=== PATIENT | female | born 1960 | race Caucasian/White ===

== ENCOUNTER 2016-05-31 07:34 | Emergency (ER) | payer BC ==
[2016-05-31] MEDS ORDERED: SODIUM CHLORIDE 0.9% 1,000 ML IV STA ×2 (08:28)
[2016-05-31] MEDS ORDERED: HYDROmorphone 1 MG/ML 1 ML SYRINGE IVP STA (08:28)
--- NOTE | 2016-05-31 08:33 | ED ---
Abdominal Pain HPI - General Chief Complaint: Abdominal Pain Stated Complaint: ABDOMINAL PAIN Time Seen by Provider: 05/31/16 07:47 Source: patient, RN notes reviewed Mode of arrival: wheelchair Limitations: no limitations - History of Present Illness Initial Comments: This is a 56-year-old female with a prior history of a urinary tract infection who states she had the onset 3 days ago of lower abdominal pain. She's had some urinary urgency no definite burning she has had some nausea no overt fevers chills or sweats she states the pain is 9/10 in severity however she states she was diagnosed with diverticulosis per colonoscopy in the past she does admit to eating peanuts the day before the pain started. She was taking [id number] Pyridium type medication with no relief. No vaginal discharges or diarrhea constipation. She states it does not feel like her previous urinary tract infection. MD Complaint: abdominal pain - Related Data Home Medications Medication Instructions Recorded Confirmed Aspirin 81 mg PO DAILY 08/14/15 05/31/16 Cholecalciferol [Vitamin D3] 5,000 unit PO DAILY 08/14/15 05/31/16 Etanercept [Enbrel] 50 mg SQ Q14D 08/14/15 05/31/16 Leflunomide [Arava] 20 mg PO DAILY 08/14/15 05/31/16 Lisinopril-Hctz 10-12.5 mg 1 tab PO DAILY 08/14/15 05/31/16 [Zestoretic 10-12.5] Gabapentin [Neurontin] 300 mg PO HS 05/31/16 05/31/16 predniSONE 20 mg PO DAILY 05/31/16 05/31/16 Previous Rx's Medication Instructions Recorded Amoxicillin/Potassium Clav 1 tab PO Q12HR #20 tab 05/31/16 [Augmentin 875-125 Tablet] Dicyclomine HCl [Bentyl] 20 mg PO QID #10 tab 05/31/16 Ondansetron Odt [Zofran Odt] 4 mg PO Q8HR PRN #10 tab 05/31/16 traMADol HCL [Ultram] 50 mg PO Q6HR PRN #20 tab 05/31/16 Allergies Allergy/AdvReac Type Severity Reaction Status Date / Time codeine AdvReac Nausea & Verified 05/31/16 07:52 Vomiting Review of Systems ROS Statement: Those systems with pertinent positive or pertinent negative responses have been documented in the HPI. ROS Other: All systems not noted in ROS Statement are negative. Past Medical History Past Medical History: Asthma, Hypertension, Osteoarthritis (OA), Rheumatoid Arthritis (RA) History of Any Multi-Drug Resistant Organisms: None Reported Past Surgical History: Joint Replacement Additional Past Surgical History / Comment(s): left knee replaced, cervical biopsy Past Anesthesia/Blood Transfusion Reactions: No Reported Reaction Past Psychological History: No Psychological Hx Reported Smoking Status: Current every day smoker Past Alcohol Use History: None Reported Additional Past Alcohol Use History / Comment(s): 1ppd since teens Past Drug Use History: None Reported - Past Family History Father Family Medical History: Cancer Mother Family Medical History: Cancer General Exam - General Exam Comments Initial Comments: This is a well-developed well-nourished awake alert oriented x3 female Limitations: no limitations General appearance: alert, in no apparent distress Head exam: Present: atraumatic, normocephalic, normal inspection Eye exam: Present: normal appearance, PERRL, EOMI. Absent: scleral icterus, conjunctival injection, periorbital swelling ENT exam: Present: mucous membranes dry Neck exam: Present: normal inspection. Absent: tenderness, meningismus, lymphadenopathy Respiratory exam: Present: normal lung sounds bilaterally. Absent: respiratory distress, wheezes, rales, rhonchi, stridor Cardiovascular Exam: Present: regular rate, normal rhythm, normal heart sounds. Absent: systolic murmur, diastolic murmur, rubs, gallop, clicks GI/Abdominal exam: Present: soft, tenderness, normal bowel sounds, other ( Suprapubic tenderness to palpation with no guarding no rebound mild right lower and left lower quadrant tenderness.). Absent: distended, guarding, rebound, rigid, bruit, pulsatile mass, hernia Rectal exam: Present: deferred Extremities exam: Present: normal inspection, full ROM, normal capillary refill. Absent: tenderness, pedal edema, joint swelling, calf tenderness Back exam: Present: normal inspection Neurological exam: Present: alert, oriented X3, CN II-XII intact Psychiatric exam: Present: normal affect, normal mood Skin exam: Present: warm, dry, intact, normal color. Absent: rash Course Vital Signs 05/31/16 07:37 Temperature 97.6 F Pulse Rate 91 Respiratory 16 Rate Blood Pressure 139/85 O2 Sat by Pulse 96 Oximetry Medical Decision Making - Medical Decision Making I did a long discussion with patient and her regarding findings. Patient would like to try to go home with outpatient treatment. This is reasonable patient be discharged on appropriate medication she is follow-up with her doctor return when necessary she was cautioned about eating nuts in the future - Lab Data Result diagrams: 05/31/16 08:44 05/31/16 08:44 Lab Results 05/31/16 05/31/16 05/31/16 Range/Units 08:15 08:44 08:44 WBC 16.1 H (3.8-10.6) k/uL RBC 4.65 (3.80-5.40) m/uL Hgb 14.1 (11.4-16.0) gm/dL Hct 43.8 (34.0-46.0) % MCV 94.2 (80.0-100.0) fL MCH 30.3 (25.0-35.0) pg MCHC 32.2 (31.0-37.0) g/dL RDW 12.6 (11.5-15.5) % Plt Count 283 (150-450) k/uL Neutrophils % 88 % Lymphocytes % 6 % Monocytes % 4 % Eosinophils % 1 % Basophils % 0 % Neutrophils # 14.2 H (1.3-7.7) k/uL Lymphocytes # 1.0 (1.0-4.8) k/uL Monocytes # 0.7 (0-1.0) k/uL Eosinophils # 0.1 (0-0.7) k/uL Basophils # 0.1 (0-0.2) k/uL Sodium 138 (137-145) mmol/L Potassium 4.1 (3.5-5.1) mmol/L Chloride 100 (98-107) mmol/L Carbon Dioxide 27 (22-30) mmol/L Anion Gap 11 mmol/L BUN 20 H (7-17) mg/dL Creatinine 1.04 (0.52-1.04) mg/dL Est GFR (MDRD) Af Amer >60 (>60 ml/min/1.73 sqM) Est GFR (MDRD) Non-Af 55 (>60 ml/min/1.73 sqM) Glucose 107 H (74-99) mg/dL Plasma Lactic Acid John (0.7-2.0) mmol/L Calcium 9.6 (8.4-10.2) mg/dL Total Bilirubin 1.3 (0.2-1.3) mg/dL AST 26 (14-36) U/L ALT 45 (9-52) U/L Alkaline Phosphatase 80 (38-126) U/L Total Protein 6.7 (6.3-8.2) g/dL Albumin 3.6 (3.5-5.0) g/dL Amylase <30 L (30-110) U/L Lipase 16 L (23-300) U/L Urine Color Dark [place] Urine Appearance Cloudy H (Clear) Urine pH 6.0 (5.0-8.0) Ur Specific [place] 1.015 (1.001-1.035) Urine Protein 1+ H (Negative) Urine Glucose (UA) Negative (Negative) Urine Ketones Negative (Negative) Urine Blood Moderate H (Negative) Urine Nitrate Negative (Negative) Urine Bilirubin Negative (Negative) Urine Urobilinogen 2.0 (<2.0) mg/dL Ur Leukocyte Esterase Negative (Negative) Urine RBC 65 H (0-5) /hpf Urine WBC 6 H (0-5) /hpf Ur Squamous Epith Cells 8 H (0-4) /hpf Urine Bacteria Rare H (None) /hpf Urine Mucus Rare H (None) /hpf 05/31/16 Range/Units 09:06 WBC (3.8-10.6) k/uL RBC (3.80-5.40) m/uL Hgb (11.4-16.0) gm/dL Hct (34.0-46.0) % MCV (80.0-100.0) fL MCH (25.0-35.0) pg MCHC (31.0-37.0) g/dL RDW (11.5-15.5) % Plt Count (150-450) k/uL Neutrophils % % Lymphocytes % % Monocytes % % Eosinophils % % Basophils % % Neutrophils # (1.3-7.7) k/uL Lymphocytes # (1.0-4.8) k/uL Monocytes # (0-1.0) k/uL Eosinophils # (0-0.7) k/uL Basophils # (0-0.2) k/uL Sodium (137-145) mmol/L Potassium (3.5-5.1) mmol/L Chloride (98-107) mmol/L Carbon Dioxide (22-30) mmol/L Anion Gap mmol/L BUN (7-17) mg/dL Creatinine (0.52-1.04) mg/dL Est GFR (MDRD) Af Amer (>60 ml/min/1.73 sqM) Est GFR (MDRD) Non-Af (>60 ml/min/1.73 sqM) Glucose (74-99) mg/dL Plasma Lactic Acid John 0.9 (0.7-2.0) mmol/L Calcium (8.4-10.2) mg/dL Total Bilirubin (0.2-1.3) mg/dL AST (14-36) U/L ALT (9-52) U/L Alkaline Phosphatase (38-126) U/L Total Protein (6.3-8.2) g/dL Albumin (3.5-5.0) g/dL Amylase (30-110) U/L Lipase (23-300) U/L Urine Color Urine Appearance (Clear) Urine pH (5.0-8.0) Ur Specific [place] (1.001-1.035) Urine Protein (Negative) Urine Glucose (UA) (Negative) Urine Ketones (Negative) Urine Blood (Negative) Urine Nitrate (Negative) Urine Bilirubin (Negative) Urine Urobilinogen (<2.0) mg/dL Ur Leukocyte Esterase (Negative) Urine RBC (0-5) /hpf Urine WBC (0-5) /hpf Ur Squamous Epith Cells (0-4) /hpf Urine Bacteria (None) /hpf Urine Mucus (None) /hpf - Radiology Data Radiology results: report reviewed (I did review the x-ray CAT scan reports. Nonspecific CAT scan does show evidence of sigmoid diverticulosis and some evidence of diverticulitis mild to moderate. Also some cholelithiasis. No other acute changes), image reviewed Disposition Clinical Impression: Diverticulitis large intestine, Abdominal pain Disposition: HOME SELF-CARE Condition: Good Instructions: Abdominal Pain (ED), Diverticulitis (ED) Prescriptions: Amoxicillin/Potassium Clav [Augmentin 875-125 Tablet] 1 tab PO Q12HR #20 tab Dicyclomine HCl [Bentyl] 20 mg PO QID #10 tab Ondansetron Odt [Zofran Odt] 4 mg PO Q8HR PRN #10 tab PRN Reason: Nausea traMADol HCL [Ultram] 50 mg PO Q6HR PRN #20 tab PRN Reason: Pain
[2016-05-31 08:56] LABS: Basophils # (A) 0.1 k/uL (0-0.2); Basophils % (A) 0 %; CH 30.3; CHCM 32.3; Eosinophils # (A) 0.1 k/uL (0-0.7); Eosinophils % (A) 1 %; HCT 43.8 % (34.0-46.0); HDW 2.06; HGB 14.1 gm/dL (11.4-16.0); Luc % (Auto) 1; Lymphocytes % (A) 6 %; MCH 30.3 pg (25.0-35.0); MCHC 32.2 g/dL (31.0-37.0); MCV 94.2 fL (80.0-100.0); Mean Platelet Volume 6.6; Monocytes # (A) 0.7 k/uL (0-1.0); Monocytes % (A) 4 %; Neutrophils # (A) 14.2 k/uL (1.3-7.7); Neutrophils % (A) 88 %; RBC 4.65 m/uL (3.80-5.40); RDW 12.6 % (11.5-15.5); WBC 16.1 k/uL (3.8-10.6); WBC (Perox) 16.14
[2016-05-31 09:04] LABS: Appearance,Urine Cloudy (Clear); Bacteria,Urine Rare /hpf; Bilirubin,Urine Negative (Negative); Glucose,Urine (UA) Negative (Negative); Ketones,Urine Negative (Negative); Leukocyte Esterase,Urine Negative (Negative); Mucus,Urine Rare /hpf; Nitrite,Urine Negative (Negative); Particle Count 7613; Protein,Urine 1+ (Negative); RBC,Urine 65 /hpf (0-5); Specific Gravity,Urine 1.015 (1.001-1.035); Squamous Epithelial Cell,Urine 8 /hpf (0-4); UA Billing (MACRO vs. MICRO) MICRO; WBC,Urine 6 /hpf (0-5)
[2016-05-31 09:07] LABS: ALT 45 U/L (9-52); AST 26 U/L (14-36); Alkaline Phosphatase 80 U/L (38-126); Amylase <30 U/L (30-110); Anion Gap 11 mmol/L; Blood Urea Nitrogen 20 mg/dL (7-17); Calcium 9.6 mg/dL (8.4-10.2); Carbon Dioxide 27 mmol/L (22-30); Chloride 100 mmol/L (98-107); Glucose 107 mg/dL (74-99); Non-African American GFR(MDRD) 55 (>60 ml/min/1.73 sqM); Potassium 4.1 mmol/L (3.5-5.1); Sodium 138 mmol/L (137-145); Total Bilirubin 1.3 mg/dL (0.2-1.3); Total Protein 6.7 g/dL (6.3-8.2)
--- NOTE | 2016-05-31 10:09 | XR ---
EXAMINATION TYPE: XR KUB DATE OF EXAM: 05/31/2016 9:50 AM COMPARISON: NONE HISTORY: Abdominal pain TECHNIQUE: Frontal view of the abdomen on 2 images FINDINGS: There is an underlying scoliosis in the thoracic lumbar spine, there are associated degener ative disc changes. No pneumoperitoneum or bowel obstruction, no pathologic calcification evident. IMPRESSION: No acute abnormality is evident.
--- NOTE | 2016-05-31 11:42 | CT ---
EXAMINATION TYPE: CT abdomen pelvis wo con DATE OF EXAM: 05/31/2016 11:33 AM COMPARISON: NONE HISTORY: 56-year-old female with Abdominal pain. CT DLP: 1709.80 mGycm. Automated exposure control for dose reduction was used. TECHNIQUE: Contiguous axial scanning of the abdomen and pelvis without IV contrast. Coronal and sagit eder reconstructions performed. FINDINGS: Heart is normal size without pericardial effusion. Lung bases clear without pleural effusion. Mild circumferential wall thickening the lower esophagus may relate to the small hiatal hernia, axial image 11. Lung bases are clear without pleural effusion. Noncontrast appearance of the liver, right adrenal gland, spleen, and pancreas within normal limits. There is mild diffuse thickening of the left adrenal gland without discrete nodularity. Kidneys appear within normal limits on noncontrast exam without any nephrolithiasis, contour deformin g lesion, or hydronephrosis. There is cholelithiasis with faceted calculi measuring up to 1 cm. No abnormal gallbladder distention . No dilated small bowel, free fluid, or free air. Short portion of a normal appendix is visualized. No significant stool burden. There is sigmoid diverticulosis with mild pericolonic fat stranding along the mid to distal sigmoid, axial image 73, with corresponding wall thickening. Small amount of pelvic free fluid is also present. No free air. Tiny fatty umbilical hernia. No mesenteric or retroperitoneal lymphadenopathy. Bladder is urine distended. Uterus and ovaries are visualized. Bones: Degenerative changes in the lumbar spine. Superior endplate Schmorl's node of L2 vertebral bod y versus old superior endplate compression injury. IMPRESSION: 1. SIGMOID DIVERTICULOSIS WITH FINDINGS SUGGESTING MILD TO MODERATE ACUTE SIGMOID DIVERTICULITIS. THE RE IS A SMALL AMOUNT OF PELVIC FREE FLUID. NO ABSCESS OR FREE AIR. FOLLOW-UP DIRECT VISUALIZATION AFT ER SUCCESSFUL TREATMENT. 2. SOME MILD WALL THICKENING AT THE DISTAL ESOPHAGUS SUSPECTED TO RELATE TO A SMALL HIATAL HERNIA RAT HER THAN A MUCOSAL LESION. CLINICALLY CORRELATE TO THE NEED FOR DIRECT VISUALIZATION. 3. CHOLELITHIASIS.
[2016-05-31] MEDS ORDERED: AMOXIC-POT CLAV 875-125MG 1 EACH TAB PO STA (11:57)
[2016-05-31 12:15] VITALS: BP 143/93; PULSE 84; RESP 18; TEMP 98.1
== END 2016-05-31 12:16 | disposition home or self-care (01) ==
LOC: EC 07:34
DX: K57.30 Diverticulosis of large intestine without perforation or abscess without bleeding (principal); K80.20 Calculus of gallbladder without cholecystitis without obstruction; I10 Essential (primary) hypertension; M06.9 Rheumatoid arthritis, unspecified; J45.909 Unspecified asthma, uncomplicated; M19.90 Unspecified osteoarthritis, unspecified site; F17.200 Nicotine dependence, unspecified, uncomplicated; Z88.5 Allergy status to narcotic agent; Z79.82 Long term (current) use of aspirin; Z79.52 Long term (current) use of systemic steroids; Z79.899 Other long term (current) drug therapy
CPT/HCPCS: 99284 ×2; 96374 ×2; 96361 ×2; 36415; 80053; 82150; 83605; 83690; 85025; 81001; 74000; 74176; J1170

== ENCOUNTER 2016-12-05 11:25 | Inpatient (IN) | payer BC ==
[2016-12-05] MEDS ORDERED: PANTOPRAZOLE 40 MG/10 ML VIAL IVP STA (12:33)
[2016-12-05] MEDS ORDERED: ONDANSETRON 4 MG/2 ML VIAL IVP STA (12:33)
[2016-12-05] MEDS ORDERED: SODIUM CHLORIDE 0.9% 1,000 ML IV STA (12:33)
--- NOTE | 2016-12-05 12:36 | ED ---
General Adult HPI <Bandar Torres - Last Filed: 12/05/16 15:08> - General Source: patient, family, RN notes reviewed Mode of arrival: wheelchair Limitations: no limitations <Naresh Godinez - Last Filed: 12/05/16 15:21> - General Chief complaint: Abdominal Pain Stated complaint: NAUSEA X 3 DAYS, ABDOMINAL PAIN Time Seen by Provider: 12/05/16 12:27 - History of Present Illness Initial comments: Patient 56-year-old female with significant past medical history for hypertension, diverticulitis, who presents emergency room today with chief complaint of symptoms of nausea vomiting 2 days. Patient states that she began having symptoms not feeling well appreciated piece of pizza 2 days ago. She states she's had nausea vomiting over the past 2 days no signs of blood. Does admit to some cramping pain in the lower abdomen that radiates up that comes and goes. Patient denies any other complaints or symptoms. States she is feeling the house that had this pizza. Patient denies any recent fever, chills, shortness of breath, chest pain, back pain, abdominal pain, nausea or vomiting, numbness or tingling, dysuria or hematuria, constipation or diarrhea, headaches or visual changes, or any other complaints. (Naresh Godinez) - Related Data Home Medications Medication Instructions Recorded Confirmed Aspirin 81 mg PO DAILY 08/14/15 12/05/16 Leflunomide [Arava] 20 mg PO DAILY 08/14/15 12/05/16 Lisinopril-Hctz 10-12.5 mg 1 tab PO DAILY 08/14/15 12/05/16 [Zestoretic 10-12.5] Cyanocobalamin (Vitamin B-12) 1,000 mcg PO DAILY 12/05/16 12/05/16 [Vitamin B-12] Multivitamins, Thera [Multivitamin 1 tab PO DAILY 12/05/16 12/05/16 (formulary)] Orencia(Unknown) 1 dose SQ TU 12/05/16 12/05/16 Allergies Allergy/AdvReac Type Severity Reaction Status Date / Time codeine AdvReac Nausea & Verified 12/05/16 14:21 Vomiting Review of Systems ROS Other: All systems not noted in ROS Statement are negative. <Bandar Torres - Last Filed: 12/05/16 15:08> ROS Other: All systems not noted in ROS Statement are negative. <Naresh Godinez - Last Filed: 12/05/16 15:21> ROS Statement: Those systems with pertinent positive or pertinent negative responses have been documented in the HPI. Past Medical History Past Medical History: Asthma, Hypertension, Osteoarthritis (OA), Rheumatoid Arthritis (RA) History of Any Multi-Drug Resistant Organisms: None Reported Past Surgical History: Joint Replacement Additional Past Surgical History / Comment(s): left knee replaced, cervical biopsy, multiple ortho surgery from [facility] Past Anesthesia/Blood Transfusion Reactions: No Reported Reaction Past Psychological History: No Psychological Hx Reported Smoking Status: Current every day smoker Past Alcohol Use History: None Reported Past Drug Use History: None Reported - Past Family History Father Family Medical History: Cancer Mother Family Medical History: Cancer <Naresh Godinez - Last Filed: 12/05/16 15:21> General Exam <Bandar Torres - Last Filed: 12/05/16 15:08> Limitations: no limitations <Naresh Godinez - Last Filed: 12/05/16 15:21> - General Exam Comments Initial Comments: General: The patient is awake and alert, in no distress, and does not appear acutely ill. Eye: Pupils are equal, round and reactive to light, extra-ocular movements are intact. No nystagmus. There is normal conjunctiva bilaterally. No signs of icterus. Ears, nose, mouth and throat: There are moist mucous membranes and no oral lesions. Neck: The neck is supple, there is no tenderness or JVD. Cardiovascular: There is a regular rate and rhythm. No murmur, rub or gallop is appreciated. Respiratory: Lungs are clear to auscultation, respirations are non-labored, breath sounds are equal. No wheezes, stridor, rales, or rhonchi. Gastrointestinal: Normal. 7. Normal bowel sounds. Soft on palpation. Patient does have some discomfort in the right and left lower quadrants. No rebound tenderness. No Guarding. No CVA tenderness. Musculoskeletal: Normal ROM, no tenderness. Strength 5/5. Sensation intact. Pulses equal bilaterally 2+. Neurological: A&O x 3. CN II-XII intact, There are no obvious motor or sensory deficits. Coordination appears grossly intact. Speech is normal. Skin: Skin is warm and dry and no rashes or lesions are noted. Psychiatric: Cooperative, appropriate mood & affect, normal judgment. (Naresh Godinez) Course <Bandar Torres - Last Filed: 12/05/16 15:08> <Naresh Godinez - Last Filed: 12/05/16 15:21> Vital Signs 12/05/16 12/05/16 12/05/16 11:40 12:43 13:00 Temperature 98.9 F 98.4 F Pulse Rate 90 86 88 Respiratory 16 20 18 Rate Blood Pressure 127/87 160/82 160/82 O2 Sat by Pulse 96 97 98 Oximetry - Reevaluation(s) Reevaluation #1: 12/05/16 15:08 I did personally do a [id number] evaluation the patient did discuss the findings with the patient. I also discussed case with Dr. Anderson who is covering Dr. England patient has seen in the past. Patient will be admitted for IV fluids and IV antibiotics and by mouth auscultation by the patient's covering medical physician. (Bandar Torres) Medical Decision Making - Lab Data Result diagrams: 12/05/16 12:03 12/05/16 12:03 <Bandar Torres - Last Filed: 12/05/16 15:08> - Lab Data Result diagrams: 12/05/16 12:03 12/05/16 12:03 <Naresh Godinez - Last Filed: 12/05/16 15:21> - Lab Data Lab Results 12/05/16 12/05/16 12/05/16 Range/Units 12:03 12:03 13:30 WBC 17.7 H (3.8-10.6) k/uL RBC 4.51 (3.80-5.40) m/uL Hgb 14.7 (11.4-16.0) gm/dL Hct 42.0 (34.0-46.0) % MCV 93.0 (80.0-100.0) fL MCH 32.6 (25.0-35.0) pg MCHC 35.1 (31.0-37.0) g/dL RDW 13.4 (11.5-15.5) % Plt Count 362 (150-450) k/uL Neutrophils % 86 % Lymphocytes % 7 % Monocytes % 6 % Eosinophils % 0 % Basophils % 1 % Neutrophils # 15.1 H (1.3-7.7) k/uL Lymphocytes # 1.3 (1.0-4.8) k/uL Monocytes # 1.0 (0-1.0) k/uL Eosinophils # 0.1 (0-0.7) k/uL Basophils # 0.1 (0-0.2) k/uL Sodium 139 (137-145) mmol/L Potassium 4.6 (3.5-5.1) mmol/L Chloride 102 (98-107) mmol/L Carbon Dioxide 27 (22-30) mmol/L Anion Gap 10 mmol/L BUN 16 (7-17) mg/dL Creatinine 0.73 (0.52-1.04) mg/dL Est GFR (MDRD) Af Amer >60 (>60 ml/min/1.73 sqM) Est GFR (MDRD) Non-Af >60 (>60 ml/min/1.73 sqM) Glucose 109 H (74-99) mg/dL Calcium 9.9 (8.4-10.2) mg/dL Total Bilirubin 1.0 (0.2-1.3) mg/dL AST 28 (14-36) U/L ALT 36 (9-52) U/L Alkaline Phosphatase 100 (38-126) U/L Total Protein 7.4 (6.3-8.2) g/dL Albumin 4.0 (3.5-5.0) g/dL Amylase <30 L (30-110) U/L Lipase 29 (23-300) U/L Urine Color Yellow Urine Appearance Clear (Clear) Urine pH 6.5 (5.0-8.0) Ur Specific [place] 1.050 H (1.001-1.035) Urine Protein 1+ H (Negative) Urine Glucose (UA) Negative (Negative) Urine Ketones 1+ H (Negative) Urine Blood Negative (Negative) Urine Nitrite Negative (Negative) Urine Bilirubin Negative (Negative) Urine Urobilinogen <2.0 (<2.0) mg/dL Ur Leukocyte Esterase Negative (Negative) Urine RBC 2 (0-5) /hpf Urine WBC 1 (0-5) /hpf Ur Squamous Epith Cells 5 H (0-4) /hpf Urine Bacteria Rare H (None) /hpf Urine Mucus Rare H (None) /hpf Disposition <Bandar Torres - Last Filed: 12/05/16 15:08> Time of Disposition: 15:09 <Naresh Godinez - Last Filed: 12/05/16 15:21> Clinical Impression: Intussusception Disposition: ADMITTED IP TO THIS [facility] Condition: Stable Referrals: Blade Ennis MD [Primary Care Provider] - 1-2 days
[2016-12-05 12:46] LABS: Basophils # (A) 0.1 k/uL (0-0.2); Basophils % (A) 1 %; CH 31.1; CHCM 33.6; Eosinophils # (A) 0.1 k/uL (0-0.7); Eosinophils % (A) 0 %; HDW 2.28; HGB 14.7 gm/dL (11.4-16.0); Luc # (Auto) 0.11; Luc % (Auto) 1; Lymphocytes # (A) 1.3 k/uL (1.0-4.8); Lymphocytes % (A) 7 %; MCH 32.6 pg (25.0-35.0); MCHC 35.1 g/dL (31.0-37.0); Mean Platelet Volume 7.2; Monocytes % (A) 6 %; Neutrophils # (A) 15.1 k/uL (1.3-7.7); Neutrophils % (A) 86 %; RBC 4.51 m/uL (3.80-5.40); RDW 13.4 % (11.5-15.5); WBC 17.7 k/uL (3.8-10.6)
[2016-12-05 12:54] LABS: ALT 36 U/L (9-52); AST 28 U/L (14-36); Alkaline Phosphatase 100 U/L (38-126); Amylase <30 U/L (30-110); Anion Gap 10 mmol/L; Blood Urea Nitrogen 16 mg/dL (7-17); Calcium 9.9 mg/dL (8.4-10.2); Carbon Dioxide 27 mmol/L (22-30); Chloride 102 mmol/L (98-107); Glucose 109 mg/dL (74-99); Non-African American GFR(MDRD) >60 (>60 ml/min/1.73 sqM); Potassium 4.6 mmol/L (3.5-5.1); Sodium 139 mmol/L (137-145); Total Protein 7.4 g/dL (6.3-8.2)
[2016-12-05] MEDS ORDERED: RX INFO: IV CONTRAST WAS GIVEN 1 EACH MISC MISCELLANE PRN (13:14)
--- NOTE | 2016-12-05 14:09 | CT ---
EXAMINATION TYPE: CT abdomen pelvis w con DATE OF EXAM: 12/05/2016 COMPARISON: 05/31/2016 HISTORY: Nausea x 3 days and abdominal pain CT DLP: 2163.50 mGycm Automated exposure control for dose reduction was used. TECHNIQUE: Helical acquisition of images was performed from the lung bases through the pelvis. CONTRAST: Performed without Oral Contrast and with IV Contrast, patient injected with 100 ml mL of Omnipaque 30 0. FINDINGS: Lung bases are clear. There is no pleural effusion. Liver spleen pancreas appear normal. There are ca lcified gallstones. Bile ducts are not dilated. There is no adrenal mass. Kidneys show satisfactory contrast opacification. There is no hydronephrosi s. There are some mildly dilated loops of small bowel in the mid mid and lower abdomen. These measure up to 3.5 cm. There is no ascites. Bladder distends smoothly. There is an unusual rounded fluid yamilet ection with wall thickening and air in the mid pelvis that apparently relates to distal ileum. The te rminal ileum is not dilated. IMPRESSION: SMALL CALCIFIED GALLSTONES. NO DILATED DUCTS. DISTENDED FLUID FILLED DISTAL SMALL BOWEL WITH UNUSUAL APPEARANCE OF A LOOP OF SMALL BOWEL IN THE MID PELVIS. I WOULD CONSIDER POSSIBILITIES OF SMALL BOWEL INTUSSUSCEPTION WITH PARTIAL MECHANICAL OBSTRU CTION. ALSO CONSIDER LOCALIZED INFLAMMATORY BOWEL DISEASE. THERE IS CLEARING OF THE INFLAMMATORY [place]LER GES IN THE SIGMOID COLON COMPARED TO OLD EXAM. OLD 15% COMPRESSION FRACTURE OF L2 VERTEBRAL BODY NOTED.
[2016-12-05 14:15] LABS: Appearance,Urine Clear (Clear); Bacteria,Urine Rare /hpf; Bilirubin,Urine Negative (Negative); Glucose,Urine (UA) Negative (Negative); Ketones,Urine 1+ (Negative); Leukocyte Esterase,Urine Negative (Negative); Mucus,Urine Rare /hpf; Nitrite,Urine Negative (Negative); PH, Urine 6.5 (5.0-8.0); Particle Count 4340; Protein,Urine 1+ (Negative); RBC,Urine 2 /hpf (0-5); Squamous Epithelial Cell,Urine 5 /hpf (0-4); UA Billing (MACRO vs. MICRO) MICRO; Urobilinogen,Urine <2.0 mg/dL (<2.0); WBC,Urine 1 /hpf (0-5)
[2016-12-05] MEDS ORDERED: NALOXONE 0.4 MG/ML 1 ML VIAL IV PRN (15:17)
[2016-12-05] MEDS ORDERED: LORazepam 2 MG/ML SYRINGE IV PRN (15:17)
[2016-12-05] MEDS ORDERED: PIPERACILLIN-TAZOBACTAM 3.375 GM in DEXTROSE/WATER 1 50ML.BAG IVPB STA (15:20)
[2016-12-05] MEDS: HYDROmorphone 1 MG/ML 1 ML SYRINGE IV PRN ×2 (16:00→19:40)
[2016-12-05 17:31] VITALS: BMI 43.0
[2016-12-05] MEDS: SODIUM CHLORIDE 0.9% 1,000 ML IV SCH (19:16)
[2016-12-05] MEDS: ONDANSETRON 4 MG/2 ML VIAL IVP PRN (19:31)
[2016-12-05] MEDS ORDERED: HYDROmorphone 1 MG/ML 1 ML SYRINGE ONE (23:30)
[2016-12-06] MEDS: ONDANSETRON 4 MG/2 ML VIAL IVP PRN ×2 (04:37→12:03)
[2016-12-06] MEDS: HYDROmorphone 1 MG/ML 1 ML SYRINGE IV PRN ×4 (04:39→15:06)
[2016-12-06] MEDS: PIPERACILLIN-TAZOBACTAM 3.375 GM in DEXTROSE/WATER 1 50ML.BAG IVPB SCH ×2 (05:19→07:46)
[2016-12-06] MEDS: SODIUM CHLORIDE 0.9% 1,000 ML IV SCH ×3 (05:49→23:30)
[2016-12-06 07:29] LABS: Basophils # (A) 0.1 k/uL (0-0.2); Basophils % (A) 1 %; CH 30.1; CHCM 32.2; Eosinophils # (A) 0.2 k/uL (0-0.7); Eosinophils % (A) 2 %; HCT 39.9 % (34.0-46.0); HDW 2.36; HGB 13.4 gm/dL (11.4-16.0); Luc # (Auto) 0.21; Luc % (Auto) 2; Lymphocytes # (A) 1.6 k/uL (1.0-4.8); Lymphocytes % (A) 12 %; MCH 31.7 pg (25.0-35.0); MCHC 33.7 g/dL (31.0-37.0); Monocytes # (A) 0.9 k/uL (0-1.0); Monocytes % (A) 7 %; Neutrophils # (A) 9.9 k/uL (1.3-7.7); Neutrophils % (A) 77 %; RBC 4.24 m/uL (3.80-5.40); WBC 12.8 k/uL (3.8-10.6); WBC (Perox) 12.79
[2016-12-06 08:04] LABS: Chloride 107 mmol/L (98-107); Glucose 98 mg/dL (74-99); Potassium 4.2 mmol/L (3.5-5.1); Sodium 140 mmol/L (137-145); Total Protein 6.5 g/dL (6.3-8.2)
[2016-12-06 08:05] LABS: ALT 33 U/L (9-52); AST 25 U/L (14-36); Alkaline Phosphatase 80 U/L (38-126); Anion Gap 10 mmol/L; Blood Urea Nitrogen 17 mg/dL (7-17); Calcium 9.3 mg/dL (8.4-10.2); Carbon Dioxide 23 mmol/L (22-30); Non-African American GFR(MDRD) >60 (>60 ml/min/1.73 sqM); Total Bilirubin 0.8 mg/dL (0.2-1.3)
--- NOTE | 2016-12-06 08:55 | P.GSHP ---
History of Present Illness H&P Date: 12/06/16 Chief Complaint: Nausea and vomiting The patient began feeling badly Tuesday. She had eaten a slice of pizza. Shortly thereafter she began developing some nausea and vomiting. She's had crampy abdominal pain. Unable to keep anything down over the weekend so came into the emergency department. No fevers or chills. She had a bowel movement on Tuesday. No flatus since then. She was treated for diverticulitis in May of this year, those symptoms quickly resolved. She had a colonoscopy by myself about 3 years ago which showed diverticular disease. She does have a family history of small bowel cancer in her father. - Review of Systems All systems: negative Past Medical History Past Medical History: Asthma, Hypertension, Osteoarthritis (OA), Rheumatoid Arthritis (RA) History of Any Multi-Drug Resistant Organisms: None Reported Past Surgical History: Joint Replacement Additional Past Surgical History / Comment(s): left knee replaced, cervical biopsy, multiple ortho surgery from [facility] Past Anesthesia/Blood Transfusion Reactions: No Reported Reaction Past Psychological History: No Psychological Hx Reported Smoking Status: Current every day smoker Past Alcohol Use History: None Reported Past Drug Use History: None Reported - Past Family History Father Family Medical History: Cancer (Small bowel adenocarcinoma in her father) Mother Family Medical History: Cancer Medications and Allergies Home Medications Medication Instructions Recorded Confirmed Type Aspirin 81 mg PO DAILY 08/14/15 12/05/16 History Leflunomide [Arava] 20 mg PO DAILY 08/14/15 12/05/16 History Lisinopril-Hctz 10-12.5 mg 1 tab PO DAILY 08/14/15 12/05/16 History [Zestoretic 10-12.5] Cyanocobalamin (Vitamin B-12) 1,000 mcg PO DAILY 12/05/16 12/05/16 History [Vitamin B-12] Multivitamins, Thera [Multivitamin 1 tab PO DAILY 12/05/16 12/05/16 History (formulary)] Orencia(Unknown) 1 dose SQ TU 12/05/16 12/05/16 History Allergies Allergy/AdvReac Type Severity Reaction Status Date / Time codeine AdvReac Nausea & Verified 12/05/16 14:21 Vomiting Surgical - Exam Osteopathic Statement: *. No significant issues noted on an osteopathic structural exam other than those noted in the History and Physical/Consult. Vital Signs Temp Pulse Resp BP Pulse Ox 98.9 F 90 16 127/87 96 12/05/16 11:40 12/05/16 11:40 12/05/16 11:40 12/05/16 11:40 12/05/16 11:40 - General well developed, well nourished, no distress - Eyes normal ocular movement - ENT normal pinna, normal mucosa - Neck trachea midline, no lymphadectomy - Respiratory normal expansion, clear to auscultation - Cardiovascular Rhythm: regular - Abdomen Abdomen: soft, tender, bowel sounds, no surgical scars, no guarding (Minimal nonspecific tenderness), no rigid, no rebound - Psychiatric oriented to time, oriented to person, oriented to place, speech is normal, memory intact Results - Labs 12/06/16 06:55 12/06/16 06:55 Abnormal Lab Results - Last 24 Hours (Table) 12/05/16 12/05/16 12/05/16 Range/Units 12:03 12:03 13:30 WBC 17.7 H (3.8-10.6) k/uL Neutrophils # 15.1 H (1.3-7.7) k/uL Glucose 109 H (74-99) mg/dL Albumin (3.5-5.0) g/dL Amylase <30 L (30-110) U/L Ur Specific [place] 1.050 H (1.001-1.035) Urine Protein 1+ H (Negative) Urine Ketones 1+ H (Negative) Ur Squamous Epith Cells 5 H (0-4) /hpf Urine Bacteria Rare H (None) /hpf Urine Mucus Rare H (None) /hpf 12/06/16 12/06/16 Range/Units 06:55 06:55 WBC 12.8 H (3.8-10.6) k/uL Neutrophils # 9.9 H (1.3-7.7) k/uL Glucose (74-99) mg/dL Albumin 3.4 L (3.5-5.0) g/dL Amylase (30-110) U/L Ur Specific [place] (1.001-1.035) Urine Protein (Negative) Urine Ketones (Negative) Ur Squamous Epith Cells (0-4) /hpf Urine Bacteria (None) /hpf Urine Mucus (None) /hpf Diabetes panel 12/05/16 12/06/16 Range/Units 12:03 06:55 Sodium 139 140 (137-145) mmol/L Potassium 4.6 4.2 (3.5-5.1) mmol/L Chloride 102 107 (98-107) mmol/L Carbon Dioxide 27 23 (22-30) mmol/L BUN 16 17 (7-17) mg/dL Creatinine 0.73 0.69 (0.52-1.04) mg/dL Glucose 109 H 98 (74-99) mg/dL Calcium 9.9 9.3 (8.4-10.2) mg/dL AST 28 25 (14-36) U/L ALT 36 33 (9-52) U/L Alkaline Phosphatase 100 80 (38-126) U/L Total Protein 7.4 6.5 (6.3-8.2) g/dL Albumin 4.0 3.4 L (3.5-5.0) g/dL Calcium panel 12/05/16 12/06/16 Range/Units 12:03 06:55 Calcium 9.9 9.3 (8.4-10.2) mg/dL Albumin 4.0 3.4 L (3.5-5.0) g/dL Pituitary panel 12/05/16 12/06/16 Range/Units 12:03 06:55 Sodium 139 140 (137-145) mmol/L Potassium 4.6 4.2 (3.5-5.1) mmol/L Chloride 102 107 (98-107) mmol/L Carbon Dioxide 27 23 (22-30) mmol/L BUN 16 17 (7-17) mg/dL Creatinine 0.73 0.69 (0.52-1.04) mg/dL Glucose 109 H 98 (74-99) mg/dL Calcium 9.9 9.3 (8.4-10.2) mg/dL Adrenal panel 12/05/16 12/06/16 Range/Units 12:03 06:55 Sodium 139 140 (137-145) mmol/L Potassium 4.6 4.2 (3.5-5.1) mmol/L Chloride 102 107 (98-107) mmol/L Carbon Dioxide 27 23 (22-30) mmol/L BUN 16 17 (7-17) mg/dL Creatinine 0.73 0.69 (0.52-1.04) mg/dL Glucose 109 H 98 (74-99) mg/dL Calcium 9.9 9.3 (8.4-10.2) mg/dL Total Bilirubin 1.0 0.8 (0.2-1.3) mg/dL AST 28 25 (14-36) U/L ALT 36 33 (9-52) U/L Alkaline Phosphatase 100 80 (38-126) U/L Total Protein 7.4 6.5 (6.3-8.2) g/dL Albumin 4.0 3.4 L (3.5-5.0) g/dL - Imaging CT scan - abdomen: report reviewed, image reviewed (I reviewed the computed tomography scan with the radiologist. We also compared this to the one in May. There isn't appear to be an intussusception however there may be a small bowel fecalith.) Assessment and Plan (1) Small bowel obstruction Status: Acute Plan: We'll order a small bowel follow-through series to further evaluate this area. If it does show evidence of foreign body or obstruction and she will need to the OR. We'll do DVT and ulcer prophylaxis. Further recommendations to follow.
--- NOTE | 2016-12-06 10:34 | XR ---
EXAMINATION TYPE: XR abdomen 1V DATE OF EXAM: 12/06/2016 9:43 AM CLINICAL HISTORY: Abnormal CT, possible distal intraluminal small bowel mass. TECHNIQUE: 2 supine KUB images of the abdomen are obtained. COMPARISON: CT abdomen and pelvis from yesterday. Older CT May 31, 2016. FINDINGS: Preprocedure rn interventional images show overall nonobstructive bowel gas pattern. Large calcified ga llstones are redemonstrated. Upon trying to drink contrast patient vomited. Contrast could not be given and thus small bowel serie s had to be canceled. IMPRESSION: As above
[2016-12-06] MEDS: FAMOTIDINE 20 MG/2 ML VIAL IV SCH ×2 (11:02→22:54)
--- NOTE | 2016-12-06 14:13 | P.PN ---
Progress Note - Text The patient was unable to do the upper GI/small bowel follow-through due to vomiting. She still doesn't feel well. Therefore I recommended a laparotomy due to the obstruction. This may be something as simple as correcting a small bowel bezoar or could require a segmental bowel resection. The procedure risk and complications were discussed. Questions were encouraged and answered. I do that for her today.
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
[2016-12-06] MEDS ORDERED: ERTAPENEM 1 GM in SODIUM CHLORIDE 0.9% 50 ML IVPB ONE (16:00)
[2016-12-06] MEDS ORDERED: IV FLUID CONTINUATION 1,000 ML IV ONE (17:07)
[2016-12-06] MEDS ORDERED: LACTATED RINGERS 1,000 ML IV ONE ×2 (17:23→19:12)
[2016-12-06] MEDS ORDERED: LIDOCAINE 1% 20 ML VIAL (10MG/ML) FOR IV START INTRADERMA ONE (17:23)
[2016-12-06] MEDS ORDERED: ONDANSETRON 4 MG/2 ML VIAL IVP ONE (17:30)
[2016-12-06] MEDS ORDERED: DEXAMETHASONE SOD PHOSPHATE 10 MG/ML 1 ML VIAL IV ONE (17:31)
[2016-12-06] MEDS ORDERED: HEPARIN SODIUM,PORCINE 5,000 UNIT/ML 1 ML VIAL SQ ONE (17:40)
[2016-12-06] MEDS ORDERED: fentaNYL (PF) 50 MCG/ML 2 ML AMP ONE (17:59)
[2016-12-06] MEDS ORDERED: PROPOFOL 10 MG/ML 20 ML VIAL IV ONE (17:59)
[2016-12-06] MEDS ORDERED: MIDAZOLAM 2 MG/2 ML VIAL ONE (17:59)
[2016-12-06] MEDS ORDERED: ROCURONIUM BROMIDE 10 MG/ML 10 ML VIAL IV ONE (17:59)
[2016-12-06] MEDS ORDERED: LIDOCAINE 1% INJ 10MG/ML (20 ML MDV) ONE (17:59)
[2016-12-06] MEDS ORDERED: SUCCINYLCHOLINE CHLORIDE VIAL 200 MG/10 ML VIAL IV ONE (17:59)
[2016-12-06] MEDS: HEPARIN SODIUM,PORCINE 5,000 UNIT/ML 1 ML VIAL SQ SCH ×2 (19:26→23:31)
--- NOTE | 2016-12-06 19:55 | P.OP ---
Date of Procedure: 12/06/16 Preoperative Diagnosis: Small bowel obstruction Postoperative Diagnosis: Small bowel obstruction due to small bowel perforation with abscess Procedure(s) Performed: Exploratory laparotomy, drainage of abscess, segmental small bowel resection, placement of drain Implants: Anesthesia: DAIJA Surgeon: Ruth England Estimated Blood Loss (ml): 100 Pathology: other (Small bowel with mesentery, culture) Condition: stable Disposition: PACU Indications for Procedure: The patient presented with nausea vomiting and abdominal pain. CT was reviewed radiologist and there is concern for a small bowel obstruction possibly due to a fecalith. Operative Findings: Small bowel perforation in the proximal jejunum with an abscess containing 15- 20 mL's of purulent material. There was some lymphadenopathy in the mesentery which could be reactive to the abscess. A segmental small bowel resection was carried out encompassing some of the mesentery. The small bowel was run from the terminal ileum proximally and from the ligament of Treitz distally and there was no evidence of any small bowel diverticuli or palpable intraluminal mass. There was some mild edema to the sigmoid colon, the abscess had been eating in that area. The sigmoid colon itself appeared intact and not the source of the infection Description of Procedure: The patient was taken the operative suite where she is prepped and draped in the usual sterile manner under general endotracheal anesthetic. The abdomen is entered through a midline incision. Small bleeding points were controlled with electrocautery. The small bowel was palpated and the area of mass was identified. Book-Ronaldo retractor was placed. The inflamed small bowel was gently dissected free from the sigmoid colon. The small bowel abscess was identified and drained. The small bowel was brought up. The small bowel was run proximally and distally. Sites were chosen proximal and distal to the perforation for resection. Opening was made in the mesentery. A NOE stapler was placed and fired. The mesentery was then either taken down with LigaSure or the larger vessels were clamped cut and tied with 0 Vicryl sutures. The specimen was passed off. The antimesenteric borders of the small bowel were tacked together with 3-0 Vicryl sutures. A small opening was then made in each limb of the bowel and a NOE stapler was placed and fired. The enteric defect was closed with a TA 60 stapler. The staple lines were reinforced with 3-0 Vicryl Lembert sutures. Gloves were changed. The mesenteric defect was then closed with 3-0 Vicryl suture. The abdomen was irrigated and aspirated. A small stab incision was made in the drain was placed into the pelvis. Small bowel was allowed to lay in gentle loops. It was covered with the mesentery. The fashion peritoneum were closed with 1 PDS. The skin was loosely closed with everette. Some ivy of Telfa were placed to allow for drainage of serous fluid. Sterile dressing was applied. She tolerated the procedure without difficulty and was taken recovery room in satisfactory condition. According to or personnel all counts were correct.
[2016-12-06] MEDS: HYDROmorphone 1 MG/ML 1 ML SYRINGE IVP ONE ×4 (20:04→20:23)
[2016-12-06] MEDS: KETOROLAC 30 MG/ML 1 ML VIAL IVP SCH (20:04)
[2016-12-06] MEDS: HYDROmorphone PCA 5 MG/25 ML SYRINGE IV PRN (21:12)
[2016-12-07] MEDS: HYDROmorphone PCA 5 MG/25 ML SYRINGE IV PRN (00:52)
[2016-12-07] MEDS: KETOROLAC 30 MG/ML 1 ML VIAL IVP SCH ×3 (02:27→15:40)
[2016-12-07] MEDS: SODIUM CHLORIDE 0.9% 1,000 ML IV SCH ×6 (06:13→23:04)
[2016-12-07 07:09] LABS: Basophils # (A) 0.1 k/uL (0-0.2); Basophils % (A) 0 %; CH 30.7; CHCM 32.6; Eosinophils % (A) 0 %; HCT 39.8 % (34.0-46.0); HDW 2.37; HGB 13.1 gm/dL (11.4-16.0); Luc # (Auto) 0.15; Luc % (Auto) 1; Lymphocytes # (A) 0.9 k/uL (1.0-4.8); Lymphocytes % (A) 6 %; MCH 31.2 pg (25.0-35.0); MCHC 32.9 g/dL (31.0-37.0); MCV 94.7 fL (80.0-100.0); Mean Platelet Volume 6.8; Monocytes # (A) 0.8 k/uL (0-1.0); Monocytes % (A) 6 %; Neutrophils # (A) 12.2 k/uL (1.3-7.7); Neutrophils % (A) 87 %; RDW 13.1 % (11.5-15.5); WBC 14.1 k/uL (3.8-10.6)
[2016-12-07 07:38] LABS: ALT 38 U/L (9-52); AST 28 U/L (14-36); Alkaline Phosphatase 75 U/L (38-126); Anion Gap 11 mmol/L; Blood Urea Nitrogen 20 mg/dL (7-17); Calcium 9.4 mg/dL (8.4-10.2); Carbon Dioxide 22 mmol/L (22-30); Chloride 107 mmol/L (98-107); Glucose 108 mg/dL (74-99); Non-African American GFR(MDRD) >60 (>60 ml/min/1.73 sqM); Potassium 4.5 mmol/L (3.5-5.1); Sodium 140 mmol/L (137-145); Total Bilirubin 0.8 mg/dL (0.2-1.3); Total Protein 6.3 g/dL (6.3-8.2)
[2016-12-07] MEDS: FAMOTIDINE 20 MG/2 ML VIAL IV SCH ×2 (08:31→20:22)
[2016-12-07] MEDS: HEPARIN SODIUM,PORCINE 5,000 UNIT/ML 1 ML VIAL SQ SCH ×3 (08:31→23:29)
[2016-12-07] MEDS ORDERED: PANTOPRAZOLE 40 MG/10 ML VIAL IV SCH (09:00)
--- NOTE | 2016-12-07 12:29 | P.PN ---
Subjective This is a 56-year-old female patient of Dr. Ennis with a past medical history for rheumatoid arthritis in the care of Dr. Elmer Carter and Orencia, hypertension, asthma. Patient states that she has had severe pain in her abdomen with cramping in the mid lower and right side along with vomiting since Tuesday. She thought she had food poisoning but it did not seem to get any better. She has follow-up with Dr. England and had a colonoscopy done 3 years ago. She last saw Dr. Castaneda last week for upper respiratory infection. She continues to have abdominal pain but more so to the mid area as well as vomiting has continued. She has not passed any gas and she has not had a bowel movement. She underwent a CAT scan of the abdomen and pelvis with contrast that showed distended fluid-filled distal small bowel with unusual appearance of loop of small bowel in the mid pelvis Would consider possibilities of small bowel intussusception with partial mechanical obstruction. Also consider localized inflammatory bowel disease. Patient was admitted to the hospital and followed by Dr. England. She has been on pain medication as well as Zofran for nausea. This morning, she was unable to tolerate small bowel series due to vomiting. Dr. Steward his recommended laparotomy due to obstruction. Patient denies having any previous abdominal surgeries. 12/07: Patient underwent exploratory laparotomy and drainage of abscess, segmental small bowel resection, placement of a drain. She was found to have small bowel obstruction due to small bowel perforation with abscess. Patient remains with NG tube in place. Urinary [place] has been placed due to urinary retention. She has not had a bowel movement, no gas. She is currently on ice chips. WALLPAPER CLEANER in place for pain control. Patient is noted to be much more comfortable today. Objective - Vital Signs Vital signs: Vital Signs Temp 97.5 F L 12/07/16 07:00 Pulse 84 12/07/16 07:00 Resp 16 12/07/16 07:00 BP 140/83 12/07/16 07:00 Pulse Ox 96 12/07/16 07:00 Intake & Output 12/06/16 12/07/16 12/07/16 18:59 06:59 18:59 Intake Total 1850 1300 Output Total 20 580 Balance 1830 720 Weight 136.078 kg Intake: IV 1800 1300 Sodium Chloride 0.9% 1, 800 900 000 ml @ 125 mls/hr IV . Q8H [facility] Rx#:[id number] Intake, IV Titration 50 Amount Piperacillin-Tazobactam 3 50 .375 gm In Dextrose/Water 1 50ml.bag @ 12.5 mls/hr IVPB Q8HR [facility] Rx#: [id number] Output: Drainage 230 Right Abdomen 230 Urine 250 Uretheral ([place]) 100 Emesis 20 Estimated Blood Loss 100 Other: Voiding Method Toilet Indwelling Catheter Indwelling Catheter # Voids 2 - Exam Gen: This is a morbidly obese 56-year-old female who appears to be uncomfortable and in no acute distress. HEENT: Head is atraumatic, normocephalic. Pupils equal, round. Sclerae is anicteric. Conjunctiva pink. NECK: Supple. No JVD. No lymphadenopathy. No thyromegaly. LUNGS: Clear to auscultation. No wheezes or rhonchi. No intercostal retractions. HEART: Regular rate and rhythm. No murmur. ABDOMEN: Morbidly obese Soft. No bowel sounds. Abdominal binder is in place which was not removed. ANASTASIYA drain with serosanguineous fluid. [place] draining dark orange fluid. EXTREMITIES: No pedal edema. No calf tenderness. SCDs in place. Dorsalis pedis +2 bilaterally. NEUROLOGICAL: Patient is awake, alert and oriented x3. Cranial nerves 2 through 12 are grossly intact. - Labs CBC & Chem 7: 12/07/16 06:49 12/07/16 06:49 Labs: Abnormal Lab Results - Last 24 Hours (Table) 12/07/16 12/07/16 Range/Units 06:49 06:49 WBC 14.1 H (3.8-10.6) k/uL Neutrophils # 12.2 H (1.3-7.7) k/uL Lymphocytes # 0.9 L (1.0-4.8) k/uL BUN 20 H (7-17) mg/dL Glucose 108 H (74-99) mg/dL Albumin 3.3 L (3.5-5.0) g/dL Microbiology - Last 24 Hours (Table) 12/06/16 19:27 Gram Stain - Preliminary Anus Wound Culture - Preliminary 12/06/16 19:27 Anaerobic Culture - Preliminary Anus 12/05/16 15:55 Blood Culture - Preliminary Blood No Growth after 24 hours Assessment and Plan Plan: 1. Small bowel obstruction secondary to small bowel perforation with abscess and possible peritonitis. Patient admitted under the care of Dr England status post exploratory laparotomy, drainage of abscess, segmental small bowel resection and placement of drain. Continue WALLPAPER CLEANER for pain control, Zofran as needed for nausea. Patient is currently on ice chips to be advanced by general surgeon. Continue Invanz daily. 2. History of hypertension. Patient has been on Zestoretic 1 tablet daily. 3. Rheumatoid arthritis under the care of Dr. Payne. Patient has been on Arava and Orencia which are on hold at this time due to acute illness. 4. Morbid obesity with a BMI of 43. 5. Asthma, and active. Patient is not on any medication. 6. Tobacco use and dependence. 7. Gastrointestinal prophylaxis. Pepcid twice daily IV. 8. DVT prophylaxis. Heparin 5000 units subcu every 8 hours. Discharge plan: Return home Impression and plan of care have been directed as dictated by the signing physician. Zohra Leary nurse practitioner acting as scribe for signing physician.
[2016-12-07] MEDS ORDERED: ENALAPRILAT 1.25 MG/ML 1 ML VIAL IVP PRN (15:33)
[2016-12-07] MEDS: LISINOPRIL-HCTZ 10-12.5 MG 1 EACH TAB PO SCH (15:34)
[2016-12-07] MEDS: ERTAPENEM 1 GM in SODIUM CHLORIDE 0.9% 50 ML IVPB SCH (15:46)
--- NOTE | 2016-12-07 17:46 | P.PN ---
Subjective Principal diagnosis: SBO secondary to small bowel perforation with abscess The patient is post op day 1 from a small bowel resection with drainage of abscess. She feels "100% better" than yesterday. Mild incisional pain. No flatus or bowel movement. No chest Pain or shortness of breath. Objective - Vital Signs Vital signs: Vital Signs Temp 97.5 F L 12/07/16 07:00 Pulse 86 12/07/16 14:04 Resp 22 12/07/16 14:04 BP 169/99 12/07/16 14:04 Pulse Ox 98 12/07/16 14:04 Intake & Output 12/06/16 12/07/16 12/07/16 18:59 06:59 18:59 Intake Total 1850 1300 875 Output Total 20 580 100 Balance 1830 720 775 Weight 136.078 kg Intake: IV 1800 1300 875 Sodium Chloride 0.9% 1, 800 900 875 000 ml @ 125 mls/hr IV . Q8H MICAH Rx#:[id number] Intake, IV Titration 50 Amount Piperacillin-Tazobactam 3 50 .375 gm In Dextrose/Water 1 50ml.bag @ 12.5 mls/hr IVPB Q8HR MICAH Rx#: [id number] Output: Drainage 230 Right Abdomen 230 Urine 250 100 Uretheral ([place]) 100 Emesis 20 Estimated Blood Loss 100 Other: Voiding Method Toilet Indwelling Catheter Indwelling Catheter # Voids 2 - Constitutional General appearance: Present: cooperative, no acute distress - Respiratory Respiratory: bilateral: CTA - Cardiovascular Rhythm: regular - Gastrointestinal General gastrointestinal: Present: absent bowel sounds, soft Localized gastrointestinal: surgical scar: diffuse (The sitting is intact with dried blood) - Labs CBC & Chem 7: 12/07/16 06:49 12/07/16 06:49 Labs: Abnormal Lab Results - Last 24 Hours (Table) 12/07/16 12/07/16 Range/Units 06:49 06:49 WBC 14.1 H (3.8-10.6) k/uL Neutrophils # 12.2 H (1.3-7.7) k/uL Lymphocytes # 0.9 L (1.0-4.8) k/uL BUN 20 H (7-17) mg/dL Glucose 108 H (74-99) mg/dL Albumin 3.3 L (3.5-5.0) g/dL Microbiology - Last 24 Hours (Table) 12/06/16 19:27 Gram Stain - Preliminary Anus Wound Culture - Preliminary 12/06/16 19:27 Anaerobic Culture - Preliminary Anus 12/05/16 15:55 Blood Culture - Preliminary Blood No Growth after 24 hours Assessment and Plan (1) Small bowel obstruction Status: Acute (2) Small bowel perforation Status: Acute (3) Intra-abdominal abscess Status: Acute Plan: Cultures are pending. Encouraged activity and incentive spirometry. Continue NG tube decompression until return of bowel function. Await pathology.
[2016-12-07] MEDS: HYDROmorphone 1 MG/ML 1 ML SYRINGE IV PRN (22:00)
[2016-12-08] MEDS: HYDROmorphone 1 MG/ML 1 ML SYRINGE IV PRN ×4 (05:33→19:31)
[2016-12-08] MEDS: SODIUM CHLORIDE 0.9% 1,000 ML IV SCH ×3 (05:55→23:10)
[2016-12-08] MEDS: LISINOPRIL-HCTZ 10-12.5 MG 1 EACH TAB PO SCH (06:44)
[2016-12-08 07:08] LABS: CH 30.4; CHCM 32.5; HCT 35.4 % (34.0-46.0); HDW 2.39; HGB 11.7 gm/dL (11.4-16.0); MCH 31.2 pg (25.0-35.0); MCHC 33.1 g/dL (31.0-37.0); MCV 94.1 fL (80.0-100.0); Mean Platelet Volume 6.9; RBC 3.76 m/uL (3.80-5.40); RDW 12.9 % (11.5-15.5); WBC 9.4 k/uL (3.8-10.6)
[2016-12-08 07:31] LABS: ALT 34 U/L (9-52); AST 28 U/L (14-36); Alkaline Phosphatase 66 U/L (38-126); Anion Gap 9 mmol/L; Blood Urea Nitrogen 22 mg/dL (7-17); Calcium 8.8 mg/dL (8.4-10.2); Carbon Dioxide 24 mmol/L (22-30); Chloride 109 mmol/L (98-107); Glucose 82 mg/dL (74-99); Non-African American GFR(MDRD) >60 (>60 ml/min/1.73 sqM); Sodium 142 mmol/L (137-145); Total Bilirubin 0.7 mg/dL (0.2-1.3); Total Protein 5.7 g/dL (6.3-8.2)
--- NOTE | 2016-12-08 08:23 | P.PN ---
Subjective Principal diagnosis: SBO secondary to small bowel perforation with abscess The patient is postoperative day 2 from segmental small bowel resection for a perforation with abscess. She's gotten out of bed to the bathroom. Has not ambulated in the robles yet. Using an incentive spirometry. Pain is controlled. No flatus Objective - Vital Signs Vital signs: Vital Signs Temp 97.3 F L 12/08/16 07:29 Pulse 95 12/08/16 07:29 Resp 17 12/08/16 07:50 BP 153/83 12/08/16 03:05 Pulse Ox 97 12/08/16 07:29 Intake & Output 12/07/16 12/08/16 12/08/16 18:59 06:59 18:59 Intake Total 875 550 Output Total 400 165 Balance 475 385 Intake: IV 875 Sodium Chloride 0.9% 1, 875 000 ml @ 125 mls/hr IV . Q8H MICAH Rx#:[id number] Intake, IV Titration 500 Amount Sodium Chloride 0.9% 1, 500 000 ml @ 125 mls/hr IV . Q8H MICAH Rx#:[id number] Oral 50 Output: Drainage 65 Right Abdomen 65 Urine 400 100 Uretheral ([place]) 300 Other: Voiding Method Indwelling Catheter Toilet # Voids 2 - Constitutional General appearance: Present: cooperative, no acute distress - Respiratory Respiratory: bilateral: CTA, diminished (Mildly at the bases) - Cardiovascular Rhythm: regular - Gastrointestinal General gastrointestinal: Present: absent bowel sounds, soft Localized gastrointestinal: surgical scar: diffuse (Incision is intact without cellulitis. There is some serosanguineous drainage from the ivy. ANASTASIYA is serosanguineous) - Labs CBC & Chem 7: 12/08/16 06:29 12/08/16 06:29 Labs: Abnormal Lab Results - Last 24 Hours (Table) 12/08/16 12/08/16 Range/Units 06:29 06:29 RBC 3.76 L (3.80-5.40) m/uL Chloride 109 H (98-107) mmol/L BUN 22 H (7-17) mg/dL Total Protein 5.7 L (6.3-8.2) g/dL Albumin 2.9 L (3.5-5.0) g/dL Microbiology - Last 24 Hours (Table) 12/06/16 19:27 Gram Stain - Preliminary Anus Wound Culture - Preliminary Gram Neg Bacilli 12/05/16 15:55 Blood Culture - Preliminary Blood No Growth after 48 hours Assessment and Plan (1) Small bowel obstruction Status: Acute (2) Small bowel perforation Status: Acute (3) Intra-abdominal abscess Status: Acute Plan: Encouraged ambulation in the robles. Continue NG tube decompression at this point since there are no bowel sounds. Continue IV antibiotics. Await culture report and pathology. Progressing slowly.
[2016-12-08] MEDS: HEPARIN SODIUM,PORCINE 5,000 UNIT/ML 1 ML VIAL SQ SCH ×3 (08:35→23:33)
[2016-12-08] MEDS: FAMOTIDINE 20 MG/2 ML VIAL IV SCH ×2 (09:02→23:10)
--- NOTE | 2016-12-08 15:10 | P.PN ---
Subjective Principal diagnosis: Severe abdominal pain, small bowel obstruction, post exploratory surgery, hypertension, rheumatoid arthritis, asthma. This is a 56-year-old female patient of Dr. Ennis with a past medical history for rheumatoid arthritis in the care of Dr. Elmer Carter and Sadi, hypertension, asthma. Patient states that she has had severe pain in her abdomen with cramping in the mid lower and right side along with vomiting since Tuesday. She thought she had food poisoning but it did not seem to get any better. She has follow-up with Dr. England and had a colonoscopy done 3 years ago. She last saw Dr. Miller last week for upper respiratory infection. She continues to have abdominal pain but more so to the mid area as well as vomiting has continued. She has not passed any gas and she has not had a bowel movement. She underwent a CAT scan of the abdomen and pelvis with contrast that showed distended fluid-filled distal small bowel with unusual appearance of loop of small bowel in the mid pelvis Would consider possibilities of small bowel intussusception with partial mechanical obstruction. Also consider localized inflammatory bowel disease. Patient was admitted to the hospital and followed by Dr. England. She has been on pain medication as well as Zofran for nausea. This morning, she was unable to tolerate small bowel series due to vomiting. Dr. Steward his recommended laparotomy due to obstruction. Patient denies having any previous abdominal surgeries. 12/07: Patient underwent exploratory laparotomy and drainage of abscess, segmental small bowel resection, placement of a drain. She was found to have small bowel obstruction due to small bowel perforation with abscess. Patient remains with NG tube in place. Urinary Hampton has been placed due to urinary retention. She has not had a bowel movement, no gas. She is currently on ice chips. LENS INSERTER in place for pain control. Patient is noted to be much more comfortable today. 712: Patient is doing much better so far since her surgery still have an NG tube in with mild pain symptoms are better than what she had originally she still have nothing by mouth at this point still muscle meds are going through the IV but the patient is stable hemodynamically. Objective - Vital Signs Vital signs: Vital Signs Temp 97 F L 12/08/16 13:35 Pulse 96 12/08/16 13:35 Resp 16 12/08/16 13:35 BP 168/81 12/08/16 13:35 Pulse Ox 95 12/08/16 13:35 Intake & Output 12/07/16 12/08/16 12/08/16 18:59 06:59 18:59 Intake Total 875 550 875 Output Total 400 165 60 Balance 475 385 815 Intake: IV 875 875 Sodium Chloride 0.9% 1, 875 875 000 ml @ 125 mls/hr IV . Q8H MIC[facility] Rx#:[id number] Intake, IV Titration 500 Amount Sodium Chloride 0.9% 1, 500 000 ml @ 125 mls/hr IV . Q8H MIC[facility] Rx#:[id number] Oral 50 Output: Drainage 65 60 Right Abdomen 65 60 Urine 400 100 Uretheral ([place]) 300 Other: Voiding Method Indwelling Catheter Toilet Toilet # Voids 2 2 - Constitutional General appearance: Present: cooperative, disheveled, obese. Absent: average body habitus, mild distress, morbidly obese, no acute distress, severe distress , thin - EENT Eyes: Present: normal appearance. Absent: abnormal pupil, anicteric sclerae, disc margins sharp, edentulous, EOMI, PERRLA, fundus normal, photophobia, dentition normal, poor dentition, ptosis, scleral icterus ENT: Present: hard of hearing. Absent: hearing grossly normal, NA/AT, normal oropharynx, other, pharyngeal erythema, thrush, tonsillar exudates, tonsillar swelling Ears: bilateral: normal - Neck Neck: Present: normal ROM. Absent: lymphadenopathy, other, rigidity, stridor, thyromegaly Carotids: bilateral: upstroke normal, upstroke delayed Thyroid: bilateral: normal size, enlarged - Respiratory Respiratory: bilateral: CTA, diminished - Cardiovascular Rhythm: regular Heart sounds: normal: S1, S2 Abnormal Heart Sounds: Present: systolic murmur, S3 Gallop - Gastrointestinal General gastrointestinal: Present: decreased bowel sounds, distended, splenomegaly, tenderness. Absent: absent bowel sounds, hepatomegaly, hyperactive bowel sounds, normal bowel sounds, organomegaly, rigid, scaphoid, soft, umbilical hernia, ventral hernia - Integumentary Integumentary: Present: pale, rash. Absent: calor, cellulitis, cyanotic, decreased turgor, flushed, jaundiced, normal, normal turgor, ulcer - Neurologic Neurologic: Present: CNII-XII intact - Musculoskeletal Musculoskeletal: Present: gait normal, generalized weakness, strength equal bilaterally. Absent: right sided weakness, left sided weakness - Psychiatric Psychiatric: Present: A&O x's 3, appropriate affect. Absent: intact judgment & insight - Labs CBC & Chem 7: 12/08/16 06:29 12/08/16 06:29 Labs: Abnormal Lab Results - Last 24 Hours (Table) 12/08/16 12/08/16 Range/Units 06:29 06:29 RBC 3.76 L (3.80-5.40) m/uL Chloride 109 H (98-107) mmol/L BUN 22 H (7-17) mg/dL Total Protein 5.7 L (6.3-8.2) g/dL Albumin 2.9 L (3.5-5.0) g/dL Microbiology - Last 24 Hours (Table) 12/06/16 19:27 Gram Stain - Preliminary Anus Wound Culture - Preliminary Gram Neg Bacilli 12/05/16 15:55 Blood Culture - Preliminary Blood No Growth after 48 hours Assessment and Plan Plan: 1. Small bowel obstruction secondary to small bowel perforation with abscess and possible peritonitis. Patient admitted under the care of Dr England status post exploratory laparotomy, drainage of abscess, segmental small bowel resection and placement of drain. Continue LENS INSERTER for pain control, Zofran as needed for nausea. Patient is currently on ice chips to be advanced by general surgeon. Continue Invanz daily. Much better hemodynamically still have an NG tube and no bowel sounds so far. 2. History of hypertension. Patient has been on Zestoretic 1 tablet daily. Meds were switched to IV lisinopril. 3. Rheumatoid arthritis under the care of Dr. Payne. Patient has been on Arava and Orencia which are on hold at this time due to acute illness. 4. Morbid obesity with a BMI of 43. 5. Asthma, and active. Patient is not on any medication. 6. Tobacco use and dependence. 7. Gastrointestinal prophylaxis. Pepcid twice daily IV.
[2016-12-08] MEDS: ERTAPENEM 1 GM in SODIUM CHLORIDE 0.9% 50 ML IVPB SCH (15:37)
[2016-12-09 07:19] LABS: Basophils % (A) 1 %; CH 30.6; CHCM 33.1; Eosinophils # (A) 0.3 k/uL (0-0.7); Eosinophils % (A) 4 %; HDW 2.45; HGB 12.3 gm/dL (11.4-16.0); Luc # (Auto) 0.19; Luc % (Auto) 2; Lymphocytes # (A) 1.8 k/uL (1.0-4.8); Lymphocytes % (A) 22 %; MCH 31.6 pg (25.0-35.0); MCHC 34.1 g/dL (31.0-37.0); MCV 92.8 fL (80.0-100.0); Mean Platelet Volume 7.1; Monocytes # (A) 0.6 k/uL (0-1.0); Monocytes % (A) 7 %; Neutrophils # (A) 5.5 k/uL (1.3-7.7); Neutrophils % (A) 65 %; RBC 3.89 m/uL (3.80-5.40); RDW 13.2 % (11.5-15.5); WBC 8.4 k/uL (3.8-10.6); WBC (Perox) 8.28
[2016-12-09 07:36] LABS: ALT 48 U/L (9-52); AST 37 U/L (14-36); Alkaline Phosphatase 71 U/L (38-126); Anion Gap 9 mmol/L; Blood Urea Nitrogen 13 mg/dL (7-17); Calcium 8.8 mg/dL (8.4-10.2); Carbon Dioxide 22 mmol/L (22-30); Chloride 109 mmol/L (98-107); Glucose 79 mg/dL (74-99); Non-African American GFR(MDRD) >60 (>60 ml/min/1.73 sqM); Sodium 140 mmol/L (137-145); Total Bilirubin 0.8 mg/dL (0.2-1.3); Total Protein 5.8 g/dL (6.3-8.2)
[2016-12-09] MEDS: FAMOTIDINE 20 MG/2 ML VIAL IV SCH ×2 (08:13→20:58)
[2016-12-09] MEDS: HEPARIN SODIUM,PORCINE 5,000 UNIT/ML 1 ML VIAL SQ SCH ×3 (08:13→23:55)
[2016-12-09] MEDS: LISINOPRIL-HCTZ 10-12.5 MG 1 EACH TAB PO SCH (08:13)
--- NOTE | 2016-12-09 14:49 | P.PN ---
Subjective Principal diagnosis: SBO secondary to small bowel perforation with abscess The patient is seen on rounds. She's having some generalized discomfort and weakness. She states she did start passing a lot of flatus. He has been ambulating in the halls and the room. Objective - Vital Signs Vital signs: Vital Signs Temp 97.9 F 12/09/16 07:56 Pulse 84 12/09/16 08:00 Resp 18 12/09/16 08:00 BP 161/79 12/09/16 07:56 Pulse Ox 98 12/09/16 07:56 Intake & Output 12/08/16 12/09/16 12/09/16 18:59 06:59 18:59 Intake Total 875 400 Output Total 110 70 Balance 765 330 Intake: IV 875 Sodium Chloride 0.9% 1, 875 000 ml @ 125 mls/hr IV . Q8H MIC[facility] Rx#:[id number] Intake, IV Titration 400 Amount Ertapenem 1 gm In Sodium 400 Chloride 0.9% 50 ml @ 100 mls/hr IVPB Q24H [facility] Rx# :[id number] Output: Drainage 110 70 Right Abdomen 110 70 Other: Voiding Method Toilet Toilet Toilet # Voids 2 3 - Constitutional General appearance: Present: cooperative, no acute distress - Respiratory Respiratory: bilateral: CTA, diminished (I'll empirically at the bases) - Cardiovascular Rhythm: regular - Gastrointestinal General gastrointestinal: Present: decreased bowel sounds, soft Localized gastrointestinal: surgical scar: diffuse (Incision is intact. The ivy are draining some serosanguineous fluid. The ANASTASIYA is serosanguineous.) - Labs CBC & Chem 7: 12/09/16 06:44 12/09/16 06:44 Labs: Abnormal Lab Results - Last 24 Hours (Table) 12/09/16 Range/Units 06:44 Chloride 109 H (98-107) mmol/L AST 37 H (14-36) U/L Total Protein 5.8 L (6.3-8.2) g/dL Albumin 3.0 L (3.5-5.0) g/dL Microbiology - Last 24 Hours (Table) 12/05/16 15:55 Blood Culture - Preliminary Blood No Growth after 72 hours 12/06/16 19:27 Gram Stain - Final Anus Wound Culture - Final Escherichia coli Assessment and Plan (1) Small bowel obstruction Status: Acute (2) Small bowel perforation Status: Acute (3) Intra-abdominal abscess Status: Acute Plan: There was no sign of cancer on her pathology. It was a idiopathic perforation with a contained abscess. Nothing I saw intraoperatively would lead me to believe she would have this recur. We will clamp her NG tube. If she is able to tolerate that it'll be discontinued after 6 hours. Further recommendations to follow
[2016-12-09] MEDS: HYDROmorphone 1 MG/ML 1 ML SYRINGE IV PRN ×2 (14:59→23:55)
--- NOTE | 2016-12-09 16:11 | P.PN ---
Subjective This is a 56-year-old female patient of Dr. Ennis with a past medical history for rheumatoid arthritis in the care of Dr. Elmer Carter and Orencia, hypertension, asthma. Patient states that she has had severe pain in her abdomen with cramping in the mid lower and right side along with vomiting since Tuesday. She thought she had food poisoning but it did not seem to get any better. She has follow-up with Dr. England and had a colonoscopy done 3 years ago. She last saw Dr. Miller last week for upper respiratory infection. She continues to have abdominal pain but more so to the mid area as well as vomiting has continued. She has not passed any gas and she has not had a bowel movement. She underwent a CAT scan of the abdomen and pelvis with contrast that showed distended fluid-filled distal small bowel with unusual appearance of loop of small bowel in the mid pelvis Would consider possibilities of small bowel intussusception with partial mechanical obstruction. Also consider localized inflammatory bowel disease. Patient was admitted to the hospital and followed by Dr. England. She has been on pain medication as well as Zofran for nausea. This morning, she was unable to tolerate small bowel series due to vomiting. Dr. Steward his recommended laparotomy due to obstruction. Patient denies having any previous abdominal surgeries. 12/07: Patient underwent exploratory laparotomy and drainage of abscess, segmental small bowel resection, placement of a drain. She was found to have small bowel obstruction due to small bowel perforation with abscess. Patient remains with NG tube in place. Urinary [place] has been placed due to urinary retention. She has not had a bowel movement, no gas. She is currently on ice chips. EVENT OPERATIONS MANAGER in place for pain control. Patient is noted to be much more comfortable today. 712: Patient is doing much better so far since her surgery still have an NG tube in with mild pain symptoms are better than what she had originally she still have nothing by mouth at this point still muscle meds are going through the IV but the patient is stable hemodynamically. 12/09: Patient was seen and evaluated today. She was sitting up at the side of the bed with her at the bedside. She is asking to have her NG taken out today, currently NG it is clamped. She is passing flatus, but has not has a bowel movement yet. She is ambulating in the hallway without difficulty. Blood cultures are still pending. She remains afebrile. White count down to 8.4. She reports good pain control. Objective - Vital Signs Vital signs: Vital Signs Temp 97.9 F 12/09/16 07:56 Pulse 84 12/09/16 08:00 Resp 18 12/09/16 08:00 BP 161/79 12/09/16 07:56 Pulse Ox 98 12/09/16 07:56 Intake & Output 12/08/16 12/09/16 12/09/16 18:59 06:59 18:59 Intake Total 875 400 Output Total 110 70 Balance 765 330 Intake: IV 875 Sodium Chloride 0.9% 1, 875 000 ml @ 125 mls/hr IV . Q8H MIC[facility] Rx#:[id number] Intake, IV Titration 400 Amount Ertapenem 1 gm In Sodium 400 Chloride 0.9% 50 ml @ 100 mls/hr IVPB Q24H [facility] Rx# :[id number] Output: Drainage 110 70 Right Abdomen 110 70 Other: Voiding Method Toilet Toilet Toilet # Voids 2 1 - Exam - Constitutional General appearance: Present: cooperative, disheveled, obese. Absent: average body habitus, mild distress, morbidly obese, no acute distress, severe distress - EENT Eyes: Present: normal appearance. Absent: abnormal pupil, anicteric sclerae, disc margins sharp, edentulous, EOMI, PERRLA, fundus normal, photophobia, dentition normal, poor dentition, ptosis, scleral icterus ENT: Present: hard of hearing. Absent: hearing grossly normal, NA/AT, normal oropharynx, other, pharyngeal erythema, thrush, tonsillar exudates, tonsillar swelling Ears: bilateral: normal - Neck Neck: Present: normal ROM. Absent: lymphadenopathy, other, rigidity, stridor, thyromegaly Carotids: bilateral: upstroke normal, upstroke delayed Thyroid: bilateral: normal size, enlarged - Respiratory Respiratory: bilateral: CTA, diminished - Cardiovascular Rhythm: regular Heart sounds: normal: S1, S2 Abnormal Heart Sounds: Present: systolic murmur, S3 Gallop - Gastrointestinal General gastrointestinal: Present: decreased bowel sounds, distended, splenomegaly, tenderness. Absent: absent bowel sounds, hepatomegaly, hyperactive bowel sounds, normal bowel sounds, organomegaly, rigid, scaphoid, soft, umbilical hernia, ventral hernia - Integumentary Integumentary: Present: pale, rash. Absent: calor, cellulitis, cyanotic, decreased turgor, flushed, jaundiced, normal, normal turgor, ulcer - Neurologic Neurologic: Present: CNII-XII intact - Musculoskeletal Musculoskeletal: Present: gait normal, generalized weakness, strength equal bilaterally. Absent: right sided weakness, left sided weakness - Psychiatric Psychiatric: Present: A&O x's 3, appropriate affect. Absent: intact judgment & insight - Labs CBC & Chem 7: 12/09/16 06:44 12/09/16 06:44 Labs: Abnormal Lab Results - Last 24 Hours (Table) 12/09/16 Range/Units 06:44 Chloride 109 H (98-107) mmol/L AST 37 H (14-36) U/L Total Protein 5.8 L (6.3-8.2) g/dL Albumin 3.0 L (3.5-5.0) g/dL Microbiology - Last 24 Hours (Table) 12/05/16 15:55 Blood Culture - Preliminary Blood No Growth after 72 hours 12/06/16 19:27 Gram Stain - Final Anus Wound Culture - Final Escherichia coli Assessment and Plan Plan: 1. Small bowel obstruction secondary to small bowel perforation with abscess and possible peritonitis. Patient admitted under the care of Dr England status post exploratory laparotomy, drainage of abscess, segmental small bowel resection and placement of drain. Patient is currently on ice chips to be advanced by general surgeon. Continue Invanz daily. Much better hemodynamically still have an NG tube. 2. History of hypertension. Patient has been on Zestoretic 1 tablet daily. Meds were switched to IV lisinopril. 3. Rheumatoid arthritis under the care of Dr. Payne. Patient has been on Arava and Orencia which are on hold at this time due to acute illness. 4. Morbid obesity with a BMI of 43. 5. Asthma, and active. Patient is not on any medication. 6. Tobacco use and dependence. 7. Gastrointestinal prophylaxis. Pepcid twice daily IV. The above impression and plan of care have been discussed and directed by signing physician. Alexandra Malloy nurse practitioner acting as scribe for signing physician.
[2016-12-09] MEDS: SODIUM CHLORIDE 0.9% 1,000 ML IV SCH (16:32)
[2016-12-09] MEDS: ERTAPENEM 1 GM in SODIUM CHLORIDE 0.9% 50 ML IVPB SCH (16:32)
[2016-12-10] MEDS: IPRATROPIUM-ALBUTEROL 3 ML NEB INHALATION PRN (05:21)
[2016-12-10] MEDS: SODIUM CHLORIDE 0.9% 1,000 ML IV SCH ×4 (07:16→13:15)
[2016-12-10] MEDS: HEPARIN SODIUM,PORCINE 5,000 UNIT/ML 1 ML VIAL SQ SCH ×2 (08:01→16:33)
[2016-12-10] MEDS: FAMOTIDINE 20 MG/2 ML VIAL IV SCH (08:01)
[2016-12-10] MEDS: LISINOPRIL-HCTZ 10-12.5 MG 1 EACH TAB PO SCH (08:02)
[2016-12-10] MEDS ORDERED: FUROSEMIDE 10 MG/ML 4 ML VIAL IV STA (09:39)
--- NOTE | 2016-12-10 12:24 | P.PN ---
Subjective This is a 56-year-old female patient of Dr. Ennis with a past medical history for rheumatoid arthritis in the care of Dr. Elmer Carter and Orencia, hypertension, asthma. Patient states that she has had severe pain in her abdomen with cramping in the mid lower and right side along with vomiting since Tuesday. She thought she had food poisoning but it did not seem to get any better. She has follow-up with Dr. England and had a colonoscopy done 3 years ago. She last saw Dr. Miller last week for upper respiratory infection. She continues to have abdominal pain but more so to the mid area as well as vomiting has continued. She has not passed any gas and she has not had a bowel movement. She underwent a CAT scan of the abdomen and pelvis with contrast that showed distended fluid-filled distal small bowel with unusual appearance of loop of small bowel in the mid pelvis Would consider possibilities of small bowel intussusception with partial mechanical obstruction. Also consider localized inflammatory bowel disease. Patient was admitted to the hospital and followed by Dr. England. She has been on pain medication as well as Zofran for nausea. This morning, she was unable to tolerate small bowel series due to vomiting. Dr. Steward his recommended laparotomy due to obstruction. Patient denies having any previous abdominal surgeries. 12/07: Patient underwent exploratory laparotomy and drainage of abscess, segmental small bowel resection, placement of a drain. She was found to have small bowel obstruction due to small bowel perforation with abscess. Patient remains with NG tube in place. Urinary Hampton has been placed due to urinary retention. She has not had a bowel movement, no gas. She is currently on ice chips. BEDSPREAD INSPECTOR in place for pain control. Patient is noted to be much more comfortable today. 712: Patient is doing much better so far since her surgery still have an NG tube in with mild pain symptoms are better than what she had originally she still have nothing by mouth at this point still muscle meds are going through the IV but the patient is stable hemodynamically. 12/09: Patient was seen and evaluated today. She was sitting up at the side of the bed with her at the bedside. She is asking to have her NG taken out today, currently NG it is clamped. She is passing flatus, but has not has a bowel movement yet. She is ambulating in the hallway without difficulty. Blood cultures are still pending. She remains afebrile. White count down to 8.4. She reports good pain control. 12/10: Patient was evaluated and seen today, she was sitting upright in the bed, no acute distress. NG tube was DC'd yesterday. Patient was started on clear liquid diet, she is tolerating clear liquids well. No nausea or vomiting, patient reports she did have a small bowel movement yesterday and is still passing flatus. She is not having any difficulty with urination. She did have some bilateral lower extremity pitting edema today, IV Lasix and compression stockings ordered. Vital signs remain stable, she remains afebrile. She continues to ambulate in the hallways. Blood culture still pending on that she continues to ertapenem. ANASTASIYA drain noted with serosanguineous drainage. Objective - Vital Signs Vital signs: Vital Signs Temp 97.8 F 12/10/16 07:59 Pulse 78 12/10/16 08:00 Resp 16 12/10/16 08:00 BP 156/87 12/10/16 07:59 Pulse Ox 98 12/10/16 07:59 Intake & Output 12/09/16 12/10/16 12/10/16 18:59 06:59 18:59 Intake Total 1615 400 Output Total 120 40 50 Balance -120 1575 350 Weight 136.078 kg 136.078 kg Intake: IV 375 Sodium Chloride 0.9% 1, 375 000 ml @ 125 mls/hr IV . Q8H MICAH Rx#:[id number] Intake, IV Titration 1000 Amount Sodium Chloride 0.9% 1, 1000 000 ml @ 125 mls/hr IV . Q8H MICAH Rx#:[id number] Oral 240 400 Output: Drainage 40 50 Right Abdomen 40 50 Urine 100 Emesis 20 Other: Voiding Method Toilet Toilet Toilet # Voids 2 - Labs CBC & Chem 7: 12/09/16 06:44 12/09/16 06:44 Labs: Microbiology - Last 24 Hours (Table) 12/06/16 19:27 Anaerobic Culture - Final Anus Anaerobic Gm Negative Bacilli 12/05/16 15:55 Blood Culture - Preliminary Blood No Growth after 96 hours Assessment and Plan Plan: 1. Small bowel obstruction secondary to small bowel perforation with abscess and possible peritonitis. Patient admitted under the care of Dr England status post exploratory laparotomy, drainage of abscess, segmental small bowel resection and placement of drain. Patient is currently on ice chips to be advanced by general surgeon. Continue Invanz daily. Much better hemodynamically 2. History of hypertension. Patient has been on Zestoretic 1 tablet daily. Meds were switched to IV lisinopril. 3. Rheumatoid arthritis under the care of Dr. Payne. Patient has been on Arava and Orencia which are on hold at this time due to acute illness. 4. Morbid obesity with a BMI of 43. 5. Asthma, and active. Patient is not on any medication. 6. Tobacco use and dependence. 7. Gastrointestinal prophylaxis. Pepcid twice daily IV. 8. DVT prophylaxis: Anticoagulation with heparin The above impression and plan of care have been discussed and directed by signing physician. Alexandra Malloy nurse practitioner acting as scribe for signing physician.
[2016-12-10] MEDS: HYDROmorphone 1 MG/ML 1 ML SYRINGE IV PRN (13:21)
--- NOTE | 2016-12-10 14:19 | P.PN ---
Subjective Principal diagnosis: SBO secondary to small bowel perforation with abscess The patient is status post resection of the small bowel for a perforation with abscess. Her NG tube was removed just her today. She's been started on a clear liquid diet. She is tolerating that without nausea or vomiting. Passing some flatus and a small bowel movement. Pain is better controlled today. Objective - Vital Signs Vital signs: Vital Signs Temp 97.8 F 12/10/16 07:59 Pulse 78 12/10/16 08:00 Resp 16 12/10/16 08:00 BP 156/87 12/10/16 07:59 Pulse Ox 98 12/10/16 07:59 Intake & Output 12/09/16 12/10/16 12/10/16 18:59 06:59 18:59 Intake Total 1615 800 Output Total 120 40 50 Balance -120 1575 750 Weight 136.078 kg 136.078 kg Intake: IV 375 Sodium Chloride 0.9% 1, 375 000 ml @ 125 mls/hr IV . Q8H MICAH Rx#:[id number] Intake, IV Titration 1000 Amount Sodium Chloride 0.9% 1, 1000 000 ml @ 125 mls/hr IV . Q8H MICAH Rx#:[id number] Oral 240 800 Output: Drainage 40 50 Right Abdomen 40 50 Urine 100 Emesis 20 Other: Voiding Method Toilet Toilet Toilet # Voids 2 10 - Constitutional General appearance: Present: cooperative, no acute distress - Respiratory Respiratory: bilateral: CTA - Gastrointestinal General gastrointestinal: Present: decreased bowel sounds, soft Localized gastrointestinal: surgical scar: diffuse (Some serous drainage on the dressing. No cellulitis. ANASTASIYA is serosanguineous.) - Labs CBC & Chem 7: 12/09/16 06:44 12/09/16 06:44 Labs: Microbiology - Last 24 Hours (Table) 12/06/16 19:27 Anaerobic Culture - Final Anus Anaerobic Gm Negative Bacilli 12/05/16 15:55 Blood Culture - Preliminary Blood No Growth after 96 hours Assessment and Plan (1) Small bowel obstruction Status: Acute (2) Small bowel perforation Status: Acute (3) Intra-abdominal abscess Status: Acute Plan: We will slowly advance the patient's diet. Change her over to oral pain medications. Hopefully ready for discharge within the next couple of days. Dr. Nj will cover this weekend.
[2016-12-10] MEDS: ERTAPENEM 1 GM in SODIUM CHLORIDE 0.9% 50 ML IVPB SCH (16:33)
[2016-12-10] MEDS: FAMOTIDINE 20 MG TAB PO SCH (20:28)
[2016-12-10] MEDS: HYDROcodone/APAP 5-325MG 1 EACH TAB PO PRN (21:32)
[2016-12-11] MEDS: HEPARIN SODIUM,PORCINE 5,000 UNIT/ML 1 ML VIAL SQ SCH ×4 (00:07→23:38)
[2016-12-11] MEDS: SODIUM CHLORIDE 0.9% 1,000 ML IV SCH ×4 (01:22→22:15)
[2016-12-11] MEDS: LISINOPRIL-HCTZ 10-12.5 MG 1 EACH TAB PO SCH (08:03)
[2016-12-11] MEDS: FAMOTIDINE 20 MG TAB PO SCH ×2 (08:03→20:30)
[2016-12-11] MEDS: HYDROcodone/APAP 5-325MG 1 EACH TAB PO PRN ×3 (08:57→21:14)
[2016-12-11] MEDS: IPRATROPIUM-ALBUTEROL 3 ML NEB INHALATION PRN (09:48)
--- NOTE | 2016-12-11 10:10 | P.PN ---
Progress Note - Text Patient is being seen for Dr. Montiel. She had a segmental small bowel resection for a perforation of small bowel. Coming along fairly well. Tolerated the diet small amount today. Did have a bowel movement the and is passing flatus. On examination the patient is awake alert in no acute distress. Vitals are stable. Temperature is normal. Abdomen shows usual postoperative tenderness. Incision looks fine subcu drains are intact. ANASTASIYA drain is minimal but the is not functioning and the bowel the replaced today. We'll monitor the output. Recommendation hopefully we can DC the ANASTASIYA drain if there is minimal output. Possible discharge in the next day or so. Encourage ambulation.
--- NOTE | 2016-12-11 14:31 | P.PN ---
Subjective Principal diagnosis: Severe abdominal pain, small bowel obstruction, post exploratory surgery, hypertension, rheumatoid arthritis, asthma, slight infection in the incision with the E. coli culture positive This is a 56-year-old female patient of Dr. Ennis with a past medical history for rheumatoid arthritis in the care of Dr. Elmer Carter and Orencia, hypertension, asthma. Patient states that she has had severe pain in her abdomen with cramping in the mid lower and right side along with vomiting since Tuesday. She thought she had food poisoning but it did not seem to get any better. She has follow-up with Dr. England and had a colonoscopy done 3 years ago. She last saw Dr. Miller last week for upper respiratory infection. She continues to have abdominal pain but more so to the mid area as well as vomiting has continued. She has not passed any gas and she has not had a bowel movement. She underwent a CAT scan of the abdomen and pelvis with contrast that showed distended fluid-filled distal small bowel with unusual appearance of loop of small bowel in the mid pelvis Would consider possibilities of small bowel intussusception with partial mechanical obstruction. Also consider localized inflammatory bowel disease. Patient was admitted to the hospital and followed by Dr. England. She has been on pain medication as well as Zofran for nausea. This morning, she was unable to tolerate small bowel series due to vomiting. Dr. Steward his recommended laparotomy due to obstruction. Patient denies having any previous abdominal surgeries. 12/07: Patient underwent exploratory laparotomy and drainage of abscess, segmental small bowel resection, placement of a drain. She was found to have small bowel obstruction due to small bowel perforation with abscess. Patient remains with NG tube in place. Urinary Hampton has been placed due to urinary retention. She has not had a bowel movement, no gas. She is currently on ice chips. AUTOMOBILE TRAV[employer] CLUB COUNSELOR in place for pain control. Patient is noted to be much more comfortable today. 712: Patient is doing much better so far since her surgery still have an NG tube in with mild pain symptoms are better than what she had originally she still have nothing by mouth at this point still muscle meds are going through the IV but the patient is stable hemodynamically. 12/09: Patient was seen and evaluated today. She was sitting up at the side of the bed with her at the bedside. She is asking to have her NG taken out today, currently NG it is clamped. She is passing flatus, but has not has a bowel movement yet. She is ambulating in the hallway without difficulty. Blood cultures are still pending. She remains afebrile. White count down to 8.4. She reports good pain control. 12/10: Patient was evaluated and seen today, she was sitting upright in the bed, no acute distress. NG tube was DC'd yesterday. Patient was started on clear liquid diet, she is tolerating clear liquids well. No nausea or vomiting, patient reports she did have a small bowel movement yesterday and is still passing flatus. She is not having any difficulty with urination. She did have some bilateral lower extremity pitting edema today, IV Lasix and compression stockings ordered. Vital signs remain stable, she remains afebrile. She continues to ambulate in the hallways. Blood culture still pending on that she continues to ertapenem. ANASTASIYA drain noted with serosanguineous drainage. 12/11/2016: Feeling better still have mild constipation foot intake has been increase patient pain is well controlled at this point with no other complication. Objective - Vital Signs Vital signs: Vital Signs Temp 97 F L 12/11/16 13:50 Pulse 95 12/11/16 13:50 Resp 16 12/11/16 13:50 BP 107/69 12/11/16 13:50 Pulse Ox 95 12/11/16 13:50 Intake & Output 12/10/16 12/11/16 12/11/16 18:59 06:59 18:59 Intake Total 800 450 360 Output Total 50 236 25 Balance 750 214 335 Intake: Oral 800 450 360 Output: Drainage 50 85 25 Right Abdomen 50 85 25 Urine 150 Urine/Stool Mix 1 Other: Voiding Method Toilet # Voids 4 2 1 # Bowel Movements 0 - Constitutional General appearance: Present: cooperative, no acute distress, obese. Absent: average body habitus, disheveled, mild distress, morbidly obese, severe distress , thin - EENT Eyes: Present: normal appearance. Absent: abnormal pupil, anicteric sclerae, disc margins sharp, edentulous, EOMI, PERRLA, fundus normal, photophobia, dentition normal, poor dentition, ptosis, scleral icterus ENT: Present: normal oropharynx. Absent: hard of hearing, hearing grossly normal, NA/AT, other, pharyngeal erythema, thrush, tonsillar exudates, tonsillar swelling Ears: bilateral: normal - Neck Neck: Present: normal ROM. Absent: lymphadenopathy, other, rigidity, stridor, thyromegaly Carotids: bilateral: upstroke normal, upstroke delayed Thyroid: bilateral: normal size - Respiratory Respiratory: bilateral: CTA, diminished, dullness, rales - Cardiovascular Rhythm: regular Heart sounds: normal: S1, S2 Abnormal Heart Sounds: Present: systolic murmur, diastolic murmur, S3 Gallop - Gastrointestinal Gastrointestinal Comment(s): Incision still have for spot of dehiscing with slight drainage with infection and serous drainage with culture came back positive for E. coli from them which to being covered with antibiotics. General gastrointestinal: Present: decreased bowel sounds, distended, organomegaly, tenderness. Absent: absent bowel sounds, hepatomegaly, hyperactive bowel sounds, normal bowel sounds, rigid, scaphoid, soft, splenomegaly, umbilical hernia, ventral hernia - Integumentary Integumentary: Present: normal, pale, rash. Absent: calor, cellulitis, cyanotic , decreased turgor, flushed, jaundiced, normal turgor, ulcer - Neurologic Neurologic: Present: CNII-XII intact - Musculoskeletal Musculoskeletal: Present: gait normal, generalized weakness, strength equal bilaterally. Absent: right sided weakness, left sided weakness - Psychiatric Psychiatric: Present: A&O x's 3, appropriate affect. Absent: intact judgment & insight - Labs CBC & Chem 7: 12/09/16 06:44 12/09/16 06:44 Labs: Microbiology - Last 24 Hours (Table) 12/05/16 15:55 Blood Culture - Preliminary Blood No Growth after 120 hours Assessment and Plan Plan: 1. Small bowel obstruction secondary to small bowel perforation with abscess and possible peritonitis. Patient admitted under the care of Dr England status post exploratory laparotomy, drainage of abscess, segmental small bowel resection and placement of drain. Continue AUT[employer] COUNSELOR for pain control, Zofran as needed for nausea. Patient is currently on ice chips to be advanced by general surgeon. Continue Invanz daily. Much better hemodynamically still have an NG tube and no bowel sounds so far. Surgical incision has serous drainage with few area of opening still on in days and Flagyl. 2. History of hypertension. Patient was switched or oral meds. 3. Rheumatoid arthritis under the care of Dr. Payne. Patient has been on Arava and Orencia which are on hold at this time due to acute illness. No RA medication will be prescribed at least the next week. 4. Morbid obesity with a BMI of 43. 5. Asthma, and active. Patient is not on any medication. 6. Tobacco use and dependence. 7. Gastrointestinal prophylaxis. Pepcid twice daily IV.
[2016-12-11] MEDS: ERTAPENEM 1 GM in SODIUM CHLORIDE 0.9% 50 ML IVPB SCH (15:13)
[2016-12-12] MEDS: HYDROcodone/APAP 5-325MG 1 EACH TAB PO PRN ×3 (05:03→15:54)
[2016-12-12] MEDS: LISINOPRIL-HCTZ 10-12.5 MG 1 EACH TAB PO SCH (07:25)
[2016-12-12 07:33] LABS: Basophils # (A) 0.1 k/uL (0-0.2); Basophils % (A) 1 %; CHCM 32.5; Eosinophils # (A) 0.4 k/uL (0-0.7); Eosinophils % (A) 6 %; HCT 37.1 % (34.0-46.0); HDW 2.36; HGB 12.1 gm/dL (11.4-16.0); Luc # (Auto) 0.17; Luc % (Auto) 3; Lymphocytes # (A) 2.2 k/uL (1.0-4.8); Lymphocytes % (A) 32 %; MCH 31.3 pg (25.0-35.0); MCHC 32.6 g/dL (31.0-37.0); MCV 95.9 fL (80.0-100.0); Mean Platelet Volume 8.4; Monocytes # (A) 0.5 k/uL (0-1.0); Monocytes % (A) 8 %; Neutrophils # (A) 3.5 k/uL (1.3-7.7); Neutrophils % (A) 51 %; RBC 3.87 m/uL (3.80-5.40); RDW 13.4 % (11.5-15.5); WBC 6.8 k/uL (3.8-10.6); WBC (Perox) 6.95
[2016-12-12 07:51] LABS: ALT 97 U/L (9-52); AST 56 U/L (14-36); Alkaline Phosphatase 71 U/L (38-126); Anion Gap 6 mmol/L; Blood Urea Nitrogen 9 mg/dL (7-17); Calcium 9.1 mg/dL (8.4-10.2); Carbon Dioxide 30 mmol/L (22-30); Chloride 103 mmol/L (98-107); Glucose 94 mg/dL (74-99); Non-African American GFR(MDRD) >60 (>60 ml/min/1.73 sqM); Potassium 3.7 mmol/L (3.5-5.1); Sodium 139 mmol/L (137-145); Total Bilirubin 0.3 mg/dL (0.2-1.3); Total Protein 5.2 g/dL (6.3-8.2)
[2016-12-12] MEDS: HEPARIN SODIUM,PORCINE 5,000 UNIT/ML 1 ML VIAL SQ SCH (08:00)
[2016-12-12] MEDS: FAMOTIDINE 20 MG TAB PO SCH (08:00)
[2016-12-12] MEDS: SODIUM CHLORIDE 0.9% 1,000 ML IV SCH ×2 (08:02→15:04)
[2016-12-12] MEDS: IPRATROPIUM-ALBUTEROL 3 ML NEB INHALATION PRN (08:15)
[2016-12-12] MEDS ORDERED: ASPIRIN 81 MG CHEW PO SCH (09:00)
--- NOTE | 2016-12-12 09:14 | P.PN ---
Progress Note - Text The patient is doing very well. Tolerating soft diet. Had a few bowel movements and is passing flatus. She is up and about , and the just had a bath , and she is fairly comfortable. On examination the patient is afebrile. Vitals are stable. Abdomen is quite soft minimal tenderness. ANASTASIYA output was only about 5 amounts of overnight. Serosanguineous fluid. Incision looks fine. Impression. Progressively improvement the first the small bowel resection for localized perforation and abscess. No evidence of any complication. Recommendation. Patient can be discharged home on a soft diet. May resume her home meds. Given a prescription for [place]. No heavy lifting for a month. Follow-up with Dr. England about a week. May shower.
[2016-12-12] MEDS ORDERED: CYANOCOBALAMIN 500 MCG TAB PO SCH (12:00)
[2016-12-12 13:40] VITALS: BP 131/77; PULSE 90; RESP 16; TEMP 97.9
--- NOTE | 2016-12-12 14:22 | P.PN ---
Subjective Principal diagnosis: Severe abdominal pain, small bowel obstruction, post exploratory surgery, hypertension, rheumatoid arthritis, asthma, slight infection in the incision with the E. coli culture positive This is a 56-year-old female patient of Dr. Ennis with a past medical history for rheumatoid arthritis in the care of Dr. Elmer Carter and Orencia, hypertension, asthma. Patient states that she has had severe pain in her abdomen with cramping in the mid lower and right side along with vomiting since Tuesday. She thought she had food poisoning but it did not seem to get any better. She has follow-up with Dr. England and had a colonoscopy done 3 years ago. She last saw Dr. Miller last week for upper respiratory infection. She continues to have abdominal pain but more so to the mid area as well as vomiting has continued. She has not passed any gas and she has not had a bowel movement. She underwent a CAT scan of the abdomen and pelvis with contrast that showed distended fluid-filled distal small bowel with unusual appearance of loop of small bowel in the mid pelvis Would consider possibilities of small bowel intussusception with partial mechanical obstruction. Also consider localized inflammatory bowel disease. Patient was admitted to the hospital and followed by Dr. England. She has been on pain medication as well as Zofran for nausea. This morning, she was unable to tolerate small bowel series due to vomiting. Dr. Steward his recommended laparotomy due to obstruction. Patient denies having any previous abdominal surgeries. 12/07: Patient underwent exploratory laparotomy and drainage of abscess, segmental small bowel resection, placement of a drain. She was found to have small bowel obstruction due to small bowel perforation with abscess. Patient remains with NG tube in place. Urinary [place] has been placed due to urinary retention. She has not had a bowel movement, no gas. She is currently on ice chips. HAND MEAT SALTER in place for pain control. Patient is noted to be much more comfortable today. 712: Patient is doing much better so far since her surgery still have an NG tube in with mild pain symptoms are better than what she had originally she still have nothing by mouth at this point still muscle meds are going through the IV but the patient is stable hemodynamically. 12/09: Patient was seen and evaluated today. She was sitting up at the side of the bed with her at the bedside. She is asking to have her NG taken out today, currently NG it is clamped. She is passing flatus, but has not has a bowel movement yet. She is ambulating in the hallway without difficulty. Blood cultures are still pending. She remains afebrile. White count down to 8.4. She reports good pain control. 12/10: Patient was evaluated and seen today, she was sitting upright in the bed, no acute distress. NG tube was DC'd yesterday. Patient was started on clear liquid diet, she is tolerating clear liquids well. No nausea or vomiting, patient reports she did have a small bowel movement yesterday and is still passing flatus. She is not having any difficulty with urination. She did have some bilateral lower extremity pitting edema today, IV Lasix and compression stockings ordered. Vital signs remain stable, she remains afebrile. She continues to ambulate in the hallways. Blood culture still pending on that she continues to ertapenem. ANASTASIYA drain noted with serosanguineous drainage. 12/11/2016: Feeling better still have mild constipation foot intake has been increase patient pain is well controlled at this point with no other complication. 12/12/2016: Patient is doing much better her incision has improved significantly still have slight drainage she is able to tolerate her diet very well using the bathroom with no sign of obstruction or bleeding. From surgical standpoint apparently patient was discharged home Will add Cipro and Flagyl for total of 10 days. Her abdominal pain is under well control. Objective - Vital Signs Vital signs: Vital Signs Temp 97.9 F 12/12/16 13:39 Pulse 90 12/12/16 13:39 Resp 16 12/12/16 13:39 BP 131/77 12/12/16 13:39 Pulse Ox 96 12/12/16 13:39 Intake & Output 12/11/16 12/12/16 12/12/16 18:59 06:59 18:59 Intake Total 597 400 Output Total 25 5 45 Balance 572 -5 355 Intake: Oral 597 400 Output: Drainage 25 5 45 Right Abdomen 25 5 45 Other: Voiding Method Toilet # Voids 2 1 3 - Constitutional General appearance: Present: cooperative, no acute distress, obese. Absent: average body habitus, disheveled, mild distress, morbidly obese, severe distress , thin - EENT Eyes: Present: normal appearance. Absent: abnormal pupil, anicteric sclerae, disc margins sharp, edentulous, EOMI, PERRLA, fundus normal, photophobia, dentition normal, poor dentition, ptosis, scleral icterus ENT: Present: normal oropharynx. Absent: hard of hearing, hearing grossly normal, NA/AT, other, pharyngeal erythema, thrush, tonsillar exudates, tonsillar swelling Ears: bilateral: normal - Neck Neck: Present: normal ROM. Absent: lymphadenopathy, other, rigidity, stridor, thyromegaly Carotids: bilateral: upstroke normal Thyroid: bilateral: normal size - Respiratory Respiratory: bilateral: diminished, dullness, rales - Cardiovascular Rhythm: regular Heart sounds: normal: S1, S2 Abnormal Heart Sounds: Present: systolic murmur, S3 Gallop - Gastrointestinal Gastrointestinal Comment(s): Her incision looks better still have slight drainage and 3 area only. Culture was positive for E. coli and the anaerobic gram-negative bacillary. General gastrointestinal: Present: decreased bowel sounds, distended, normal bowel sounds, organomegaly, soft, tenderness. Absent: absent bowel sounds, hepatomegaly, hyperactive bowel sounds, rigid, scaphoid, splenomegaly, umbilical hernia, ventral hernia - Integumentary Integumentary: Present: normal, pale, rash. Absent: calor, cellulitis, cyanotic , decreased turgor, flushed, jaundiced, normal turgor, ulcer - Neurologic Neurologic: Present: CNII-XII intact - Musculoskeletal Musculoskeletal: Present: gait normal, generalized weakness, strength equal bilaterally. Absent: right sided weakness, left sided weakness - Psychiatric Psychiatric: Present: A&O x's 3, appropriate affect - Labs CBC & Chem 7: 12/12/16 06:31 12/12/16 06:31 Labs: Abnormal Lab Results - Last 24 Hours (Table) 12/12/16 Range/Units 06:31 AST 56 H (14-36) U/L ALT 97 H (9-52) U/L Total Protein 5.2 L (6.3-8.2) g/dL Albumin 2.7 L (3.5-5.0) g/dL Microbiology - Last 24 Hours (Table) 12/05/16 15:55 Blood Culture - Final Blood No Growth after 144 hours Assessment and Plan Plan: 1. Small bowel obstruction secondary to small bowel perforation with abscess and possible peritonitis. Patient admitted under the care of Dr England status post exploratory laparotomy, drainage of abscess, segmental small bowel resection and placement of drain. Continue HAND MEAT SALTER for pain control, Zofran as needed for nausea. Patient is currently on ice chips to be advanced by general surgeon. Continue Invanz daily. Much better hemodynamically still have an NG tube and no bowel sounds so far. Surgical incision has serous drainage with few area of opening still on Flagyl , and Cipro for total of 10 days. Patient stable to be discharged home oral home meds were sent to the pharmacy patient to follow-up with her PCP in the next few days. 2. History of hypertension. Patient was switched or oral meds. 3. Rheumatoid arthritis under the care of Dr. Payne. Patient has been on Arava and Orencia which are on hold at this time due to acute illness. No RA medication will be prescribed at least the next week. After discharge home not to start her biological agent for any rheumatoid patient for at least 1-2 weeks. 4. Morbid obesity with a BMI of 43. 5. Asthma, and active. Patient is not on any medication. 6. Tobacco use and dependence. 7. Gastrointestinal prophylaxis. Pepcid twice daily IV. Patient was stable to be discharged home today.
[2016-12-12] MEDS: ERTAPENEM 1 GM in SODIUM CHLORIDE 0.9% 50 ML IVPB SCH (15:03)
== END 2016-12-12 16:01 | disposition home or self-care (01) | DRG 344 ==
LOC: EC 11:25 → 3SUR 16:10 → OBSVTOIN 12-06 14:47
PROVIDERS: ADMIT Surgery; ATTEND Surgery
PROC: 0W9G00Z Drainage of Peritoneal Cavity with Drainage Device, Open Approach (ICD-10-PCS; 2016-12-06)
PROC: 0DB80ZX Excision of Small Intestine, Open Approach, Diagnostic (ICD-10-PCS; principal; 2016-12-06 09:05)
DX: K65.1 Peritoneal abscess (principal); K63.1 Perforation of intestine (nontraumatic); E66.01 Morbid (severe) obesity due to excess calories; M06.9 Rheumatoid arthritis, unspecified; R60.0 Localized edema; R59.0 Localized enlarged lymph nodes; R33.9 Retention of urine, unspecified; I10 Essential (primary) hypertension; B96.20 Unspecified Escherichia coli [E. coli] as the cause of diseases classified elsewhere; J45.909 Unspecified asthma, uncomplicated; K59.00 Constipation, unspecified; R01.1 Cardiac murmur, unspecified; K57.30 Diverticulosis of large intestine without perforation or abscess without bleeding; R53.1 Weakness; M19.90 Unspecified osteoarthritis, unspecified site; F17.210 Nicotine dependence, cigarettes, uncomplicated; Z80.0 Family history of malignant neoplasm of digestive organs; Z79.82 Long term (current) use of aspirin; Z96.652 Presence of left artificial knee joint; Z87.828 Personal history of other (healed) physical injury and trauma; Z86.19 Personal history of other infectious and parasitic diseases; Z87.19 Personal history of other diseases of the digestive system; Z88.5 Allergy status to narcotic agent; Z87.09 Personal history of other diseases of the respiratory system; Z82.61 Family history of arthritis; Z83.79 Family history of other diseases of the digestive system; Z79.899 Other long term (current) drug therapy; Z92.25 Personal history of immunosuppression therapy
CPT/HCPCS: 36415; 74000; 74177; 80053; 81001; 82150; 83690; 85025; 85027; 87040; 87070; 87075; 87077; 87186; 87205; 88108; 88305; 88307; 94640; 94760; 94762; 96361; 96365; 96374; 96375; 99285

== ENCOUNTER 2023-11-26 20:32 | Emergency (ER) | payer BC ==
[2023-11-26 20:39] VITALS: RESP 18; TEMP 98
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
[2023-11-26] MEDS: HYDROmorphone 0.5 MG/0.5 ML SYRINGE IM STA (21:20)
--- NOTE | 2023-11-26 22:04 | CT ---
EXAMINATION TYPE: CT chest wo con CT DLP: 504.6 mGycm, Automated exposure control for dose reduction was used. DATE OF EXAM: 11/26/2023 9:21 PM COMPARISON: None. . CLINICAL INDICATION:Female, 63 years old with history of anterior right mid chest pain, hx of fall; P HH, FELL ON RIGHT SIDE TECHNIQUE: Multiple axial images were obtained through the chest. Sagittal and coronal reformats were created for review. Additionally 3-D rotational surface rendered bony reformatted images of the rib cage were generated on a remote workstation. Contrast used: mL of (None if empty) Oral contrast used: (None if empty) FINDINGS: LUNGS/ PLEURA: The lung parenchyma appears unremarkable. No pleural effusion or pneumothorax. AIRWAY: Central airways are patent. Minimal scattered mucous secretions along the tena of the trache a. LOWER NECK: No significant findings. Visualized thyroid unremarkable. MEDIASTINUM: No enlarged nodes by CT size criteria. No suggestion of hilar adenopathy on this unenha nced exam. HEART: Normal heart size. Moderate bilateral coronary arterial calcifications, more on the left.. No appreciable pericardial effusion. VASCULATURE: Mild/moderate atherosclerotic calcifications of the aorta and branches, greatest in the upper abdomen. Ascending aorta is 3.3 CM, descending is 2.3 CM. Pulmonary trunk measures 2.7 CM. Pulmonary trunk is normal in size. Vessels otherwise not further ass essed without contrast. SOFT TISSUES/LYMPH NODES: Unremarkable soft tissues. No axillary adenopathy. UPPER ABDOMEN: 3 peripherally calcified 1.2cm gallstones aligned within the gallbladder. Gallbladder is nondistended and there is no inflammatory change evident. Adrenals may be mildly thickened but wit hout evidence of mass. MUSCULOSKELETAL: Sternum and clavicles are aligned, without evidence of fracture. Partially seen mode rate degenerative changes of the shoulders. On the right, there is minimally displaced fracture of th e anterior slightly lateral aspect of the right third rib, and slightly farther laterally of the four th and fifth ribs. No left-sided rib fractures are seen. Mild/moderate degenerative changes throughou t the visualized spine without evidence of an acute abnormality. There is mild height loss and Schmor l's node formation along the superior endplate L2, chronic in appearance. Similarly, mild height loss /depression along the superior endplate T12. If there is any significant back pain MRI could further evaluate. IMPRESSION: 1. Mildly displaced fractures of the right anterolateral ribs 3, 4, 5. 2. No evidence of lung contusion or pneumothorax. 3. Cholelithiasis.
[2023-11-26] MEDS: ACET/COD 300 MG/30 MG STARTER PACK 6 TAB BTL PO STA (22:47)
[2023-11-26] MEDS: ONDANSETRON 4 MG ODT STARTER PACK 2 TAB BTL PO STA (22:47)
[2023-11-26 22:53] VITALS: BP 140/80; PULSE 72
== END 2023-11-26 22:52 | disposition home or self-care (01) ==
LOC: EC 20:32
DX: S22.31XA Fracture of one rib, right side, initial encounter for closed fracture (principal); F17.200 Nicotine dependence, unspecified, uncomplicated; Z88.5 Allergy status to narcotic agent; W18.30XA Fall on same level, unspecified, initial encounter; Y93.H2 Activity, gardening and landscaping; Y92.197 Garden or yard of other specified residential institution as the place of occurrence of the external cause
CPT/HCPCS: 71250; 99284; 96372; S0119; J1170